=== PATIENT | male | born 1985 | race Caucasian/White ===

== ENCOUNTER 2020-09-03 16:13 | Emergency (ER) | payer OTHER ==
[~2020-09-03] VITALS: Ht 165.1 cm; Wt 113.9 kg
--- NOTE | 2020-09-03 16:36 | PHYS DOC ---
Past Medical History Past Medical History: No Pertinent History Past Surgical History: Tonsillectomy, Other Additional Past Surgical Histo: wisdom teeth extraction Smoking Status: Never Smoker Alcohol Use: None General Adult EDM: Chief Complaint: CHEST PAIN HPI: HPI: Patient is a 35 year old male who presents with mid chest pain as an aching that comes and goes but is more so with coughing or movement. Also to the back of right shoulder blade for about the last week. He states he is having generalized fatigue. He states he has not been checking his temperature at home but here in the ED does have fever of 100.1. Patient states he does have some nasal congestion but he also has allergies. States he has had a headache for about the last 6 weeks. He denies cough, sob, nausea, vomiting, loss of taste, loss of smell, diarrhea, numbness or tingling, focal weakness. Review of Systems: Review of Systems: Constitutional: + fever or chills. [] Eyes: Denies change in visual acuity. [] HENT: + nasal congestion or denies sore throat. [] Respiratory: Denies cough or shortness of breath. [] Cardiovascular: +chest pain or denies edema. [] GI: Denies abdominal pain, nausea, vomiting, bloody stools or diarrhea. [] : Denies dysuria. [] Musculoskeletal: Denies back pain or joint pain. + Body aches, + focal weakness [] Integument: Denies rash. [] Neurologic: + headache, denies focal weakness or sensory changes. [] Endocrine: Denies polyuria or polydipsia. [] Lymphatic: Denies swollen glands. [] Psychiatric: Denies depression or anxiety. [] Heart Score: HEART Score for Chest Pain: HEART Score for Chest Pain Response (Comments) Value History Slighlty/Non-Suspicious 0 ECG Normal 0 Age < 45 0 Risk Factors 1 or 2 Risk Factors 1 Troponin < Normal Limit 0 Total 1 Risk Factors: Risk Factors: DM, Current or recent (<one month) smoker, HTN, HLP, family history of CAD, obesity. Risk Scores: Score 0 - 3: 2.5% MACE over next 6 weeks - Discharge Home Score 4 - 6: 20.3% MACE over next 6 weeks - Admit for Clinical Observation Score 7 - 10: 72.7% MACE over next 6 weeks - Early Invasive Strategies Allergies: Allergies: Allergies Coded Allergies Type Severity Reaction Last Updated Verified Penicillins Allergy Unknown 09/03/20 Yes Physical Exam: PE: Constitutional: Well developed, well nourished, no acute distress, non-toxic appearance. [] HENT: Normocephalic, atraumatic, bilateral external ears normal, oropharynx moist, no oral exudates, nose normal. [] Eyes: PERRLA, EOMI, conjunctiva normal, no discharge. [] Neck: Normal range of motion, no tenderness, supple, no stridor. [] Cardiovascular:Heart rate regular rhythm, no murmur [] Lungs & Thorax: Bilateral breath sounds clear to auscultation [] Abdomen: Bowel sounds normal, soft, no tenderness, no masses, no pulsatile masses. [] Skin: Warm, dry, no erythema, no rash. [] Back: No tenderness, no CVA tenderness. [] Extremities: No tenderness, no cyanosis, no clubbing, ROM intact, no edema. [] Neurologic: Alert and oriented X 3, normal motor function, normal sensory function, no focal deficits noted. [] Psychologic: Affect normal, judgement normal, mood normal. Normal physical exam [] Current Patient Data: Vital Signs: Vital Signs Date Time Temp Pulse Resp B/P (MAP) Pulse Ox O2 Delivery O2 Flow Rate FiO2 09/03/20 16:27 100.1 108 20 159/85 (109) 100 Room Air 100.1 EKG: EK and read by Dr Leiva as Sinus Rhythm and no STEMI Radiology/Procedures: Radiology/Procedures: [] Impression: [facility] [address] [place], [place] [id number] IMAGING REPORT Signed PATIENT: MARGY FINCH ACCOUNT: [id number] : 1985 LOCATION: ER AGE: 35 SEX: M EXAM STATUS: PRE ER ORD. PHYSICIAN: GAVI SCHNEIDER APRN REASON: chest pain PROCEDURE: PORTABLE CHEST 1V Exam: Chest one view INDICATION: Chest pain TECHNIQUE: Frontal view of the chest Comparisons: None FINDINGS: The cardiomediastinal silhouette and pulmonary vessels are within normal limits. The lung and pleural spaces are clear. IMPRESSION: No acute cardiopulmonary process. Electronically signed by: Candi Dobbins MD (09/03/2020 5:04 PM) [facility] DICTATED and SIGNED BY: CANDI DOBBINS MD DATE: 09/03/20 [id number] 0 Course & Med Decision Making: Course & Med Decision Making Pertinent Labs and Imaging studies reviewed. (See chart for details) COVID-19 CRITERIA: The patient was evaluated during the global COVID-19 pandemic, and that diagnosis was suspected/considered upon their initial presentation. Their evaluation, treatment and testing was consistent with current guidelines for patients who present with complaints or symptoms that may be related to COVID-19. See HPI. Alert and oriented x4. Ambulatory with steady gait. Skin pink warm and dry. Lungs are clear to auscultation all lobes. Speaks in full clear sentences. Heart rate down to 102 from 112. [] Dragon Disclaimer: DragRoboCV Disclaimer: This electronic medical record was generated, in whole or in part, using a voice recognition dictation system. COVID-19 Patient Risks: Age 65 or older: No Sign of co-morbidity: Yes Exp to person + for COVID: Yes Exp to PUI: No Travel from affected area: No Lower respiratory symptoms: Yes Fever: Yes Other: Yes (body aches, nasal congestion) PPE Use: Full PPE with N95 mask or PAPR: Yes Departure Departure Impression: Primary Impression: Non-cardiac chest pain Additional Impressions: Body aches Fever Qualified Codes: R50.9 - Fever, unspecified Person under investigation for COVID-19 Fatigue Qualified Codes: R53.83 - Other fatigue Disposition: 01 DC HOME SELF CARE/HOMELESS Condition: STABLE Patient Instructions: Chest Pain (Nonspecific), Fatigue, Fever, Adult Additional Instructions: Follow-up with primary care provider. Take medication as prescribed and with food. Drink plenty of fluids. You have been tested for or diagnosed with COVID-19. It is an infection caused by a new type of coronavirus. COVID-19 will cause cold-like or mild flu symptoms in most. It can cause more severe symptoms like problems breathing in some. There is no treatment for COVID-19. The body will clear the infection over time. Self-care will help to ease discomfort. Steps to Take: Self-Care Rest as needed. Healthy habits may help you feel better. Steps include: Choose healthy foods including fruits and vegetables. Drink water throughout the day. Get plenty of sleep each night. If you smoke, try to quit. It may ease breathing. Avoid alcohol. Keep Others Healthy The virus can spread to others. Droplets are released every time you sneeze or cough. The droplets can get into the mouth, nose, or eyes of people near you and lead to infection. To lower the chances of spreading COVID-19 to others: Stay at home until your doctor has said it is safe to leave. If you tested positive this will mean staying isolated until both of the following are true: At least 7 days have passed since the start of illness. You are free of fever for at least 72 hours without the use of medicine. During this time: - Avoid public areas, events, or transportation. Do not return to work or school until your doctor has said it is safe to do so. - Call ahead if you need to go to a medical center. Let them know you may have COVID-19. It will help them guide you where to go. They may also ask you to wear a facemask when you come to the office. - If you call for emergency medical services, let them know you may have COVID- 19. While at home: - Try to avoid close contact with others. Stay about 6 feet away. - If possible, spend most of your time in a separate room from others. - Use a face mask if you will be in close contact with others such as sharing a room or vehicle. - Have someone wipe down common surfaces in the home. Use household assembly press operator every day on areas like doorknobs, counters, or sinks. - Cough or sneeze into a tissue. Throw the tissue away right after use. If a tissue is not available, cough or sneeze into your elbow. - Wash your hands often. Wash them after sneezing or coughing. Use soap and water and wash for at least 20 seconds. Alcohol based hand mud cleaner operator can be used if soap and water is not available. - Do not prepare food for others. Avoid sharing personal items like forks, spoons, or toothbrushes. - Avoid close contact with pets while you are sick. There is no evidence of the virus passing to pets. This is a safety step until more is known about this virus. Isolation can be frustrating. Social interaction can help. Keep in touch with friends and family through phone and tech options. You can still interact with others in your home, just keep a safe distance of about 6 feet. Follow-up: Your doctors office will check in with you to see if there are any changes in your health. You may be asked to keep track of symptoms to share with them. They will also let you know when you are clear to be in public again. Problems to Look Out For: Contact your doctor if your recovery is not going as you expect. Get emergency care if you have problems such as: - Trouble breathing - Nonstop chest pain or pressure - Changes in awareness, confusion, or problems waking - Lips or face have bluish color - Worsening of symptoms If you think you have an emergency, call for emergency medical services right away. As taken from [facility] Ibuprofen (IBUPROFEN) 600 Mg Tablet 600 MG PO PRN Q6HRS PRN for INFLAMMATION, #25 TAB Prov: GAVI SCHNEIDER APRN 09/03/20 Methylprednisolone (MEDROL) 4 Mg Tab.ds.pk 1 PKG PO UD, #1 PKG Prov: GAVI SCHNEIDER APRN 09/03/20 Azithromycin (AZITHROMYCIN TABLET) 250 Mg Tablet 1 PKG PO UD for 5 Days, #6 TAB 0 Refills 2 the first day followed by 1 for days 2-5 Prov: GAVI SCHNEIDER APRN 09/03/20 GAVI SCHNEIDER APRN Sep 03, 2020 16:36
[2020-09-03] MEDS ORDERED: ACETAMINOPHEN 325 MG TABLET. PO ONE (17:00)
[2020-09-03 17:07] LABS: BASO % 1 % (0-3); EOS # 0.1 x10^3/uL (0.0-0.7); EOS % 1 % (0-3); HEMATOCRIT 46.4 % (39.0-53.0); HEMOGLOBIN 15.8 g/dL (13.0-17.5); LYMPH # 2.6 x10^3/uL (1.0-4.8); LYMPH % 28 % (24-48); MEAN CORPUSCULAR HEMOGLOBIN 30 pg (25-35); MEAN CORPUSCULAR HGB CONC 34 g/dL (31-37); MEAN CORPUSCULAR VOLUME 88 fL (79-100); MONO # 0.7 x10^3/uL (0.0-1.1); MONO % 8 % (0-9); NEUT # 5.9 x10^3/uL (1.8-7.7); NEUT % 63 % (31-73); PLATELET COUNT 310 x10^3/uL (140-400); RED BLOOD COUNT 5.26 x10^6/uL (4.30-5.70); WHITE BLOOD COUNT 9.3 x10^3/uL (4.0-11.0)
--- NOTE | 2020-09-03 17:07 | RAD ---
Exam: Chest one view INDICATION: Chest pain TECHNIQUE: Frontal view of the chest Comparisons: None FINDINGS: The cardiomediastinal silhouette and pulmonary vessels are within normal limits. The lung and pleural spaces are clear. IMPRESSION: No acute cardiopulmonary process. Electronically signed by: Juanito Vyas MD (09/03/2020 5:04 PM) LINDA
[2020-09-03 17:15] LABS: PROTHROMBIN TIME PATIENT 12.6 SEC (11.7-14.0)
[2020-09-03 17:19] LABS: CALCIUM 9.1 mg/dL (8.5-10.1); CREATININE 1.1 mg/dL (0.7-1.3); GFR 76.6
[2020-09-03 17:25] LABS: ALBUMIN/GLOBULIN RATIO 1.3 (1.0-1.7); BILIRUBIN,URINE NEGATIVE (NEG); CLARITY,URINE CLEAR; COLOR,URINE YELLOW; NITRITE,URINE NEGATIVE (NEG); PROTEIN,URINE NEGATIVE (NEG-TRACE); TOTAL BILIRUBIN 0.3 mg/dL (0.2-1.0); TOTAL PROTEIN 7.2 g/dL (6.4-8.2)
[2020-09-03 17:29] LABS: BARBITURATES NEG (NEG); BENZODIAZEPINES NEG (NEG); CANNABINOIDS NEG (NEG); COCAINE NEG (NEG); METHADONE NEG (NEG); OPIATES NEG (NEG); PHENCYCLIDINE NEG (NEG)
[2020-09-03 17:30] LABS: BACTERIA,URINE 0 /HPF (0-FEW); RBC,URINE 0 /HPF (0-2); WBC,URINE OCC /HPF (0-4)
[2020-09-03 17:35] LABS: AMPHETAMINE/METHAMPHETAMINE NEG (NEG)
[2020-09-03] MEDS ORDERED: IV NORMAL SALINE 1000ML BAG 1,000 ML IV ONE (18:00)
[2020-09-03] MEDS ORDERED: METH4TAB2 PO (18:12)
[2020-09-03] MEDS ORDERED: IBUP-1007 PO (18:12)
[2020-09-03] MEDS ORDERED: AZIT250T6 PO (18:12)
[2020-09-03 19:54] VITALS: BP 115/56
--- NOTE | 2020-09-05 09:30 | NUR ---
IP: Attempted to contact pt concerning COVID results. No answer. Left a voicemail to return the call.
== END 2020-09-03 20:10 | disposition home or self-care (01) ==
LOC: ER 16:13
DX: R07.89 Other chest pain (principal); Z20.822 Contact with and (suspected) exposure to COVID-19; R50.9 Fever, unspecified; R05 Cough; R53.83 Other fatigue; Z90.89 Acquired absence of other organs; Z98.890 Other specified postprocedural states; Z88.0 Allergy status to penicillin
CPT/HCPCS: 36415; 71045; 80053; 80307; 81001; 83690; 83880; 84484; 85025; 85379; 85610; 93005; 96360; 96361; 99285; C9803; J7030; U0003

== ENCOUNTER → 2020-12-27 | Outpatient (CLI) | payer OTHER ==
[~2020-12-27] MED LIST: AZIT250T6 PO; IBUP-1007 PO; METH4TAB2 PO
--- NOTE | 2020-12-27 10:58 | KCIC ---
EXAM: Head CT without contrast. HISTORY: Headache. Left facial numbness. TECHNIQUE: Computed tomographic images of the head were obtained without contrast. *One or more of the following individualized dose reduction techniques were utilized for this examina tion: 1. Automated exposure control. 2. Adjustment of the mA and/or kV according to patient size. 3. Use of iterative reconstruction technique. COMPARISON: None. FINDINGS: There is no acute or subacute extra-axial or intraparenchymal hemorrhage. There is no mass effect or midline shift. There is no hydrocephalus. The ashby-white matter differentiation pattern is intact. The visualized portions of the orbits, paranasal sinuses and mastoid air cells are unremarkable. No s uspicious calvarial lesion is seen. IMPRESSION: No acute intracranial findings. Electronically signed by: Sigrid Holland MD (12/27/2020 10:55 AM) [id number]
== END ==
LOC: KCIC CT 08:34
PROVIDERS: ATTEND Family Medicine
DX: G44.89 Other headache syndrome (principal); R20.0 Anesthesia of skin
CPT/HCPCS: 70450

== ENCOUNTER 2021-09-26 16:36 | Inpatient (IN) | payer SELFPAY ==
[~2021-09-26] VITALS: Ht 165.1 cm; Wt 115.9 kg
[2021-09-26] VITALS (8 sets, daily range): BP systolic 117–159; BP diastolic 67–99
[2021-09-26] MEDS ORDERED: IV NORMAL SALINE 1000ML BAG 1,000 ML IV ONE (17:00)
[2021-09-26] MEDS ORDERED: ASPIRIN 325 MG TABLET PO ONE (17:00)
[2021-09-26] MEDS ORDERED: MORPHINE SULFATE 2 MG/ML INJ. IVP ONE (17:00)
[2021-09-26] MEDS ORDERED: HEPARIN for IV BOLUS 10,000 UNIT/10 ML VIAL. IV ONE (17:00)
[2021-09-26] MEDS ORDERED: IODIXANOL 320 MG/ML 100 ML VIAL. ONE ×2 (17:02→17:46)
[2021-09-26] MEDS ORDERED: HEPARIN for ARTERIAL LINE 1,500 ML ONE (17:02)
[2021-09-26] MEDS ORDERED: LIDOCAINE 1% Multi-Dose 20 ML VIAL. ONE (17:03)
[2021-09-26] MEDS ORDERED: MIDAZOLAM HCL/PF 2 MG/2 ML VIAL. ONE (17:03)
[2021-09-26] MEDS ORDERED: fentaNYL PF VIAL 100 MCG/2 ML VIAL ONE (17:03)
--- NOTE | 2021-09-26 17:05 | RAD ---
EXAM: Chest, single view. HISTORY: Chest pain. COMPARISON: 09/03/2020 FINDINGS: A frontal view of the chest is obtained. There is no infiltrate, pleural effusions or pneum othorax. The heart is normal in size. IMPRESSION: No acute pulmonary finding. Electronically signed by: Sigrid Holland MD (09/26/2021 5:02 PM) [id number]
--- NOTE | 2021-09-26 17:05 | PHYS DOC ---
Past Medical History Past Medical History: Hypertension Past Surgical History: Tonsillectomy, Other Additional Past Surgical Histo: wisdom teeth extraction Smoking Status: Never Smoker Alcohol Use: None Drug Use: None General Adult EDM: Chief Complaint: CHEST PAIN HPI: HPI: 36-year-old male presents with 10 to 15-minute history of substernal chest pain which is "clenching in nature ". Patient reports associated diaphoresis, shortness of breath, sore throat, and headache. Patient reports pain is 8 out of 10. Denies any leg swelling or calf tenderness. Denies trauma. Denies fever or chills. Patient does report chronic cough that is intermittent in nature. Patient does report history of COVID infection 2 weeks ago. Patient reports was previously vaccinated with single Giovanny & Giovanny vaccine. Patient reports cardiac risk factors of hypertension and significant family history of father with AMI at age 34. Review of Systems: Review of Systems: Constitutional: Denies fever or chills Eyes: Denies redness or eye pain HENT: Denies nasal congestion; reports sore throat Respiratory: Reports shortness of breath and chronic intermittent cough Cardiovascular: Reports chest pain; denies palpitations GI: Denies abdominal pain, nausea, or vomiting : Denies dysuria or hematuria Musculoskeletal: Denies back pain or joint pain Integument: Denies rash or skin lesions Neurologic: Reports headache; denies focal weakness or sensory changes Complete systems were reviewed and found to be within normal limits, except as documented in this note. Heart Score: C/O Chest Pain: Yes HEART Score for Chest Pain: HEART Score for Chest Pain Response (Comments) Value History Highly Suspicious [address] Depression 2 Age < 45 0 Risk Factors 1 or 2 Risk Factors 1 Total 5 Risk Factors: Risk Factors: DM, Current or recent (<one month) smoker, HTN, HLP, family history of CAD, obesity. Risk Scores: Score 0 - 3: 2.5% MACE over next 6 weeks - Discharge Home Score 4 - 6: 20.3% MACE over next 6 weeks - Admit for Clinical Observation Score 7 - 10: 72.7% MACE over next 6 weeks - Early Invasive Strategies Current Medications: Current Medications Medications (Trade) Dose Ordered Sig/Terri Start Time Stop Time Status Last Admin Dose Admin Aspirin (Shaun Aspirin) 325 mg 1X ONCE 09/26/21 17:00 09/26/21 17:01 UNV Heparin Sodium (Porcine) (Heparin Sodium) 4,000 unit 1X ONCE 09/26/21 17:00 09/26/21 17:01 UNV Sodium Chloride 1,000 ml @ 1,000 mls/hr 1X ONCE 09/26/21 17:00 09/26/21 17:59 UNV Allergies: Allergies: Allergies Coded Allergies Type Severity Reaction Last Updated Verified Penicillins Allergy Unknown 09/03/20 Yes Physical Exam: PE: Constitutional: Obese, well nourished, no acute distress, non-toxic appearance HENT: Normocephalic, atraumatic, pharynx without erythema or exudate Eyes: PERRL, EOMI, conjunctiva normal, no discharge Neck: Normal range of motion, no tenderness, supple Lungs & Thorax: No respiratory distress, equal chest rise and fall Abdomen: Soft, no tenderness Skin: Warm, dry, no erythema, no rash Back: No tenderness, no CVA tenderness Extremities: No calf tenderness, ROM intact, no edema Neurologic: Alert and oriented X 3, normal motor function, normal sensory function, no focal deficits noted Psychologic: Affect normal, judgment normal EKG: EKG: @1643 NSR at 73bpm, ST elevation II-III and aVF, reciprocal ST depression in I, aVL, and V2, QRS 90ms, QT/QTc 342/380ms, compared to prior EKG from 09/03/20 which was Sinus tachycadia at 112bpm, without ST elevation or depressions @1715 NSR at 84bpm, ST elevation II-III and aVF, reciprocal ST depression V2, QRS 90ms, QT/QTc 324/386ms Radiology/Procedures: Radiology/Procedures: PROCEDURE: PORTABLE CHEST 1V EXAM: Chest, single view. HISTORY: Chest pain. COMPARISON: 09/03/2020 FINDINGS: A frontal view of the chest is obtained. There is no infiltrate, pleural effusions or pneumothorax. The heart is normal in size. IMPRESSION: No acute pulmonary finding. Electronically signed by: Sigrid Holland MD (09/26/2021 5:02 PM) [id number] Course & Med Decision Making: Course & Med Decision Making Pertinent Labs and Imaging studies reviewed. (See chart for details) Patient presents with report of substernal chest pain which was sudden in nature with associated diaphoresis. Patient also with some sore throat, headache, shortness of breath. Patient does report COVID-19 infection 2 weeks ago. EKG obtained which was consistent for inferior DE. Code STEMI initiated. Aspirin and heparin provided. Labs obtained and posted to chart. Chest x-ray also obtained. Discussed case with Dr. Sargent (cardiology) who will take patient directly to the Printed Circuit Layout Taper. Patient requiring admission for further evaluation and treatment. Discussed with Dr. Tobar (hospitalist) who is in agreement with admission. Discussed findings and plan with patient, who acknowledges understanding and agreement. Dragon Disclaimer: Dragon Disclaimer: This electronic medical record was generated, in whole or in part, using a voice recognition dictation system. Departure Departure Impression: Primary Impression: STEMI (ST elevation myocardial infarction) Qualified Codes: I21.19 - ST elevation (STEMI) myocardial infarction inv olving other coronary artery of inferior wall Disposition: ADMITTED INPATIENT Admitting Physician: WASHINGTON Elizabeth) Condition: GUARDED Referrals: Viridiana BEEBE MD (PCP) Critical Care Time Critical care time was 30 minutes which includes time at bedside, spent in discussion of patient's care with specialists and/or family members, with interpretation of laboratory and/or radiological studies and is exclusive of procedures. CHAYITO SEVERINO DO Sep 26, 2021 17:05
[2021-09-26 17:13] LABS: BASO # 0.1 x10^3/uL (0.0-0.2); BASO % 1 % (0-3); EOS # 0.1 x10^3/uL (0.0-0.7); EOS % 1 % (0-3); HEMATOCRIT 46.1 % (39.0-53.0); LYMPH % 34 % (24-48); MEAN CORPUSCULAR HEMOGLOBIN 29 pg (25-35); MEAN CORPUSCULAR HGB CONC 33 g/dL (31-37); MEAN CORPUSCULAR VOLUME 89 fL (79-100); MONO # 1.4 x10^3/uL (0.0-1.1); MONO % 9 % (0-9); NEUT # 8.1 x10^3/uL (1.8-7.7); NEUT % 55 % (31-73); PLATELET COUNT 357 x10^3/uL (140-400); RED BLOOD COUNT 5.19 x10^6/uL (4.30-5.70); WHITE BLOOD COUNT 14.6 x10^3/uL (4.0-11.0)
[2021-09-26 17:18] LABS: CALCIUM 8.5 mg/dL (8.5-10.1); CREATININE 0.9 mg/dL (0.7-1.3); POTASSIUM 3.8 mmol/L (3.5-5.1)
[2021-09-26 17:21] LABS: ALBUMIN 3.9 g/dL (3.4-5.0); ALBUMIN/GLOBULIN RATIO 1.3 (1.0-1.7); MAGNESIUM 2.1 mg/dL (1.8-2.4); TOTAL BILIRUBIN 0.2 mg/dL (0.2-1.0)
[2021-09-26] MEDS ORDERED: ONDANSETRON PF 4 MG/2 ML VIAL. ONE (17:27)
[2021-09-26] MEDS ORDERED: BIVALIRUDIN 250 MG VIAL. IV ONE ×2 (17:43→18:15)
[2021-09-26] MEDS ORDERED: ATROPINE 1 MG/10 ML DISP.SYRINGE. ONE (17:55)
[2021-09-26] MEDS ORDERED: NITROGLYCERIN 200 MCG/2 ML SYRINGE FOR CATH/VASC LAB. ONE ×2 (18:04→18:11)
--- NOTE | 2021-09-26 18:04 | HP ---
DATE OF SERVICE: 09/26/2021 ADMIT DATE: 09/26/2021 CHIEF COMPLAINT: Chest pain. HISTORY OF PRESENT ILLNESS: The patient is a pleasant 36-year-old male who presents to the ER with 15 minutes of chest pain, rated at 10/10. He has associated shortness of breath, diaphoresis, sore throat and a headache rated at 10/10. He had COVID-19 two weeks ago. He is vaccinated with Giovanny and Giovanny. He has a strong family history. In fact, his dad had a heart attack at age 34. While in the ER, we noticed that he has got EKG changes consistent with ST elevated inferior acute myocardial infarction. I discussed the case with ER physician. We are going to admit the patient with consultation to Dr. Sargent. Dr. Sargent has just seen the patient, is going straight to the civil laboratory technician. PAST MEDICAL HISTORY: Hypertension, tonsillectomy, wisdom teeth extraction. ALLERGIES: PENICILLIN. FAMILY HISTORY: Coronary artery disease. His dad had a heart attack at 34. SOCIAL HISTORY: Does not drink, smoke or take drugs. MEDICATIONS: Reviewed. Please refer to the MRAD. REVIEW OF SYSTEMS: GENERAL: No history of weight change, weakness or fevers. SKIN: No bruising, hair changes or rashes. EYES: No blurred, double or loss of vision. NOSE AND THROAT: No history of nosebleeds, hoarseness or sore throat. HEART: He complains of chest pain. LUNGS: Denies cough, hemoptysis, wheezing or shortness of breath. GASTROINTESTINAL: Denies changes in appetite, nausea, vomiting, diarrhea or constipation. GENITOURINARY: No history of frequency, urgency, hesitancy or nocturia. NEUROLOGIC: Denies history of numbness, tingling, tremor or weakness. PSYCHIATRIC: No history of panic, anxiety or depression. ENDOCRINE: No history of heat or cold intolerance, polyuria or polydipsia. EXTREMITIES: Denies muscle weakness, joint pain, pain on walking or stiffness. PHYSICAL EXAMINATION: VITALS: Within normal limits and are stable. GENERAL: No apparent distress. Alert and oriented. HEENT: Normal cephalic atraumatic, external auditory canals are patent EYES: Extraocular muscles are intact, pupils are equally round and reactive to light and accommodation MUSCULOSKELETAL: Well developed, well nourished, good range of motion ENDOCRINE: No thyromegaly was palpated LYMPHATICS: No cervical chain or axillary nodes were noted HEMATOPOIETIC: No bruising NECK: Supple, no JVD, no thyromegaly was noted. LUNGS: Clear to auscultation in all lung ramey without rhonchi or wheezing. HEART: RRR, S1, S2 present. Peripheral pulses intact, no obvious murmurs were noted. ABDOMEN: Soft, nontender. Positive bowel sounds no organomegaly, normal bowel sounds. EXTREMITIES: Without any cyanosis, clubbing, or edema. Pedal pulses intact, Homans sign is negative. NEUROLOGIC: Normal speech, normal tone. A and O x 3, moves all extremities, no obvious focal deficits. PSYCHIATRIC: Normal affect, normal mood. Stable. SKIN: No ulcerations or rashes, good skin turgor, no jaundice. VASCULAR: Good capillary refill, neurovascular bundle appears to be intact. LABORATORY DATA: EKG shows ST elevation in the inferior leads with reciprocal ST depression in I, aVL and V2. ASSESSMENT AND PLAN: Acute myocardial infarction. The patient has been admitted. We will consult Cardiology. They have already seen her, taking straight to the civil laboratory technician. P.r.n. morphine. Await cardiac catheterization results. Prognosis guarded. DEVANTE DR: Rodriguez TID: [id number]
[2021-09-26] MEDS ORDERED: TICAGRELOR 90 MG TABLET. ONE (18:11)
[2021-09-26] MEDS ORDERED: LIDOCAINE 1% Multi-Dose 20 ML VIAL. INJ ONE (18:15)
[2021-09-26] MEDS ORDERED: fentaNYL PF VIAL 100 MCG/2 ML VIAL IV ONE (18:15)
[2021-09-26] MEDS ORDERED: TICAGRELOR 90 MG TABLET. PO ONE (18:15)
[2021-09-26] MEDS ORDERED: ONDANSETRON PF 4 MG/2 ML VIAL. IVP ONE (18:15)
[2021-09-26] MEDS ORDERED: MIDAZOLAM HCL/PF 2 MG/2 ML VIAL. IV ONE (18:15)
[2021-09-26] MEDS ORDERED: NITROGLYCERIN 200 MCG/2 ML SYRINGE FOR CATH/VASC LAB. IART ONE (18:15)
[2021-09-26] MEDS ORDERED: IODIXANOL 320 MG/ML 100 ML VIAL. IART ONE (18:15)
[2021-09-26] MEDS: TIROFIBAN 12.5MG -0.9% NS 250 ML IV PRN (18:33)
--- NOTE | 2021-09-26 19:15 | PDOC2 ---
CONSULT Date of Consult Date of Consult DATE: 09/26/21 TIME: 19:11 Reason for Consult Reason for Consult: Chest pain Referring Physician Referring Physician: Dr. Tobar Identification/Chief Complaint Chief Complaint Chest pain Source Source: Chart review, Patient History of Present Illness Reason for Visit: The patient is a 36-year-old male who presented to the emergency room with approximately 30 minutes of chest pain. Patient states he has had a headache for approximately 2 weeks but the chest pain is a new finding today. He did test positive for Covid approximately 2 weeks ago but denies any severe shortness of breath. His EKG in the emergency room is consistent with an inferior ST elevated myocardial infarction. He has been treated with heparin, aspirin and morphine for his pain. He was seen in the emergency room. He denies any personal history of coronary disease but does have a history of hypertension. He has a very strong family history of early coronary artery disease with his father having a myocardial infarction at age 34. Past Medical History Cardiovascular: HTN Past Surgical History Past Surgical History: Tonsillectomy, Other ([place] teeth removal) Family History Family History: Coronary Artery Disease Social History No ALCOHOL: none Current Problem List Problem List Problems Medical Problems: (1) STEMI (ST elevation myocardial infarction) Status: Acute Current Medications Current Medications Current Medications Sodium Chloride 1,000 ml @ 1,000 mls/hr 1X ONCE IV Last administered on 09/03 12/21at 16:58; Start 09/26/21 at 17:00; Stop 09/26/21 at 17:59; Status DC Heparin Sodium (Porcine) (Heparin Sodium) 4,000 unit 1X ONCE IV Last administered on 09/26/21at 16:59; Start 09/26/21 at 17:00; Stop 09/26/21 at 17:01; Status DC Aspirin (Shaun Aspirin) 325 mg 1X ONCE PO Last administered on 09/26/21at 16:57; Start 09/26/21 at 17:00; Stop 09/26/21 at 17:01; Status DC Morphine Sulfate (Morphine Sulfate) 2 mg 1X ONCE IVP Last administered on 09/26/21at 17:04; Start 09/26/21 at 17:00; Stop 09/26/21 at 17:31; Status DC Iodixanol (Visipaque 320) [facility] ONCE .ROUTE ; Start 09/26/21 at 17:02; Stop 09/26/21 at 17:02; Status DC Heparin Sodium/ Sodium Chloride 1,500 ml @ As Directed STK-MED ONCE .ROUTE ; Start 09/26/21 at 17:02; Stop 09/26/21 at 17:03; Status DC Fentanyl Citrate (Fentanyl 2ml Vial) 100 mcg STK-MED ONCE .ROUTE ; Start 09/26/21 at 17:03; Stop 09/26/21 at 17:03; Status DC Midazolam HCl (Versed) 2 mg STK-MED ONCE .ROUTE ; Start 09/26/21 at 17:03; Stop 09/26/21 at 17:03; Status DC Lidocaine HCl (Lidocaine 1% 20ml Vial) 20 ml STK-MED ONCE .ROUTE ; Start 09/26/21 at 17:03; Stop 09/26/21 at 17:03; Status DC Ondansetron HCl (Zofran) 4 mg STK-MED ONCE .ROUTE ; Start 09/26/21 at 17:27; Stop 09/26/21 at 17:27; Status DC Bivalirudin (Angiomax) 250 mg STK-MED ONCE IV ; Start 09/26/21 at 17:43; Stop 09/26/21 at 17:44; Status DC Heparin Sodium/ Sodium Chloride 500 ml @ As Directed STK-MED ONCE .ROUTE ; Start 09/26/21 at 17:43; Stop 09/26/21 at 17:44; Status DC Iodixanol (Visipaque 320) 100 ml STK-MED ONCE .ROUTE ; Start 09/26/21 at 17:46; Stop 09/26/21 at 17:46; Status DC Atropine Sulfate (ATROPINE 1mg SYRINGE) 1 mg STK-MED ONCE .ROUTE ; Start 09/26/21 at 17:55; Stop 09/26/21 at 17:56; Status DC Nitroglycerin (Nitroglycerin) 200 mcg STK-MED ONCE .ROUTE ; Start 09/26/21 at 18:04; Stop 09/26/21 at 18:04; Status DC Nitroglycerin (Nitroglycerin) 200 mcg 1X ONCE IART Last administered on 09/26/21at 18:30; Start 09/26/21 at 18:15; Stop 09/26/21 at 18:16; Status DC Heparin Sodium/ Sodium Chloride (HEPARIN for ARTERIAL LINE FLUSH) 2,000 unit 1X ONCE IART Last administered on 09/26/21at 18:29; Start 09/26/21 at 18:15; Stop 09/26/21 at 18:16; Status DC Heparin Sodium/ Sodium Chloride (HEPARIN for ARTERIAL LINE FLUSH) 2,000 unit 1X ONCE IART Last administered on 09/26/21at 18:29; Start 09/26/21 at 18:15; Stop 09/26/21 at 18:16; Status DC Midazolam HCl (Versed) 1 mg 1X ONCE IV Last administered on 09/26/21at 18:32; Start 09/26/21 at 18:15; Stop 09/26/21 at 18:16; Status DC Fentanyl Citrate (Fentanyl 2ml Vial) 50 mcg 1X ONCE IV Last administered on 09/26/21 18:32; Start 09/26/21 at 18:15; Stop 09/26/21 at 18:16; Status DC Iodixanol (Visipaque 320) 100 ml 1X ONCE IART Last administered on 09/26/21at 18:30; Start 09/26/21 at 18:15; Stop 09/26/21 at 18:16; Status DC Bivalirudin (Angiomax) 250 mg 1X ONCE IV Last administered on 09/26/21 18:32; Start 09/26/21 at 18:15; Stop 09/26/21 at 18:16; Status DC Ticagrelor (Brilinta) 180 mg 1X ONCE PO Last administered on 09/26/21at 18:31; Start 09/26/21 at 18:15; Stop 09/26/21 at 18:16; Status DC Lidocaine HCl (Lidocaine 1% 20ml Vial) 20 ml 1X ONCE INJ Last administered on 09/26/21at 17:31; Start 09/26/21 at 18:15; Stop 09/26/21 at 18:16; Status DC Ondansetron HCl (Zofran) 4 mg 1X ONCE IVP Last administered on 09/26/21 18:32; Start 09/26/21 at 18:15; Stop 09/26/21 at 18:16; Status DC Ticagrelor (Brilinta) 90 mg STK-MED ONCE .ROUTE ; Start 09/26/21 at 18:11; Stop 09/26/21 at 18:11; Status DC Nitroglycerin (Nitroglycerin) 200 mcg STK-MED ONCE .ROUTE ; Start 09/26/21 at 18:11; Stop 09/26/21 at 18:11; Status DC Tirofiban/Sodium Chloride 250 ml @ 22.086 mls/ hr CONT PRN IV PER PROTOCOL Last administered on 09/26/21at 18:33; Start 09/26/21 at 18:30 Active Scripts Active Ibuprofen 600 Mg Tablet 600 Mg PO PRN Q6HRS PRN Medrol (Methylprednisolone) 4 Mg Tab.ds.pk 1 Pkg PO UD Azithromycin Tablet (Azithromycin) 250 Mg Tablet 1 Pkg PO UD 5 Days 2 the first day followed by 1 for days 2-5 Allergies Allergies: Coded Allergies: Penicillins (Verified Allergy, Unknown, 09/26/21) ROS Cardiovascular: yes Chest Pain Neurological: Yes Headaches Physical Exam General: moderate distress HEENT: Atraumatic Lungs: Clear to auscultation Heart: Regular rate Abdomen: Normal bowel sounds Vitals VITALS Vital Signs Date Time Temp Pulse Resp B/P (MAP) Pulse Ox O2 Delivery O2 Flow Rate FiO2 09/26/21 19:02 98.7 88 16 136/79 (98) 98 Room Air 98.7 09/26/21 18:45 2.0 Labs Labs Laboratory Tests Test 09/26/21 16:50 09/26/21 16:55 White Blood Count 14.6 x10^3/uL (4.0-11.0) Red Blood Count 5.19 x10^6/uL (4.30-5.70) Hemoglobin 15.0 g/dL (13.0-17.5) Hematocrit 46.1 % (39.0-53.0) Mean Corpuscular Volume 89 fL (79-100) Mean Corpuscular Hemoglobin 29 pg (25-35) Mean Corpuscular Hemoglobin Concent 33 g/dL (31-37) Red Cell Distribution Width 14.0 % (11.5-14.5) Platelet Count 357 x10^3/uL (140-400) Neutrophils (%) (Auto) 55 % (31-73) Lymphocytes (%) (Auto) 34 % (24-48) Monocytes (%) (Auto) 9 % (0-9) Eosinophils (%) (Auto) 1 % (0-3) Basophils (%) (Auto) 1 % (0-3) Neutrophils # (Auto) 8.1 x10^3/uL (1.8-7.7) Lymphocytes # (Auto) 5.0 x10^3/uL (1.0-4.8) Monocytes # (Auto) 1.4 x10^3/uL (0.0-1.1) Eosinophils # (Auto) 0.1 x10^3/uL (0.0-0.7) Basophils # (Auto) 0.1 x10^3/uL (0.0-0.2) Sodium Level 137 mmol/L (136-145) Potassium Level 3.8 mmol/L (3.5-5.1) Chloride Level 99 mmol/L (98-107) Carbon Dioxide Level 24 mmol/L (21-32) Anion Gap 14 (6-14) Blood Urea Nitrogen 10 mg/dL (8-26) Creatinine 0.9 mg/dL (0.7-1.3) Estimated GFR (Cockcroft-Gault) 96.0 BUN/Creatinine Ratio 11 (6-20) Glucose Level 148 mg/dL (70-99) Calcium Level 8.5 mg/dL (8.5-10.1) Magnesium Level 2.1 mg/dL (1.8-2.4) Total Bilirubin 0.2 mg/dL (0.2-1.0) Aspartate Amino Transf (AST/SGOT) 33 U/L (15-37) Alanine Aminotransferase (ALT/SGPT) 89 U/L (16-63) Alkaline Phosphatase 103 U/L (46-116) Troponin I High Sensitivity 14 ng/L (4-75) QG-Jxv-T-Type Natriuretic Peptide 7 pg/mL (0-124) Total Protein 7.0 g/dL (6.4-8.2) Albumin 3.9 g/dL (3.4-5.0) Albumin/Globulin Ratio 1.3 (1.0-1.7) Lipase 121 U/L (73-393) SARS-CoV-2 Antigen (Rapid) Negative (NEGATIVE) Laboratory Tests Test 09/26/21 16:50 09/26/21 16:55 White Blood Count 14.6 x10^3/uL (4.0-11.0) Red Blood Count 5.19 x10^6/uL (4.30-5.70) Hemoglobin 15.0 g/dL (13.0-17.5) Hematocrit 46.1 % (39.0-53.0) Mean Corpuscular Volume 89 fL (79-100) Mean Corpuscular Hemoglobin 29 pg (25-35) Mean Corpuscular Hemoglobin Concent 33 g/dL (31-37) Red Cell Distribution Width 14.0 % (11.5-14.5) Platelet Count 357 x10^3/uL (140-400) Neutrophils (%) (Auto) 55 % (31-73) Lymphocytes (%) (Auto) 34 % (24-48) Monocytes (%) (Auto) 9 % (0-9) Eosinophils (%) (Auto) 1 % (0-3) Basophils (%) (Auto) 1 % (0-3) Neutrophils # (Auto) 8.1 x10^3/uL (1.8-7.7) Lymphocytes # (Auto) 5.0 x10^3/uL (1.0-4.8) Monocytes # (Auto) 1.4 x10^3/uL (0.0-1.1) Eosinophils # (Auto) 0.1 x10^3/uL (0.0-0.7) Basophils # (Auto) 0.1 x10^3/uL (0.0-0.2) Sodium Level 137 mmol/L (136-145) Potassium Level 3.8 mmol/L (3.5-5.1) Chloride Level 99 mmol/L (98-107) Carbon Dioxide Level 24 mmol/L (21-32) Anion Gap 14 (6-14) Blood Urea Nitrogen 10 mg/dL (8-26) Creatinine 0.9 mg/dL (0.7-1.3) Estimated GFR (Cockcroft-Gault) 96.0 BUN/Creatinine Ratio 11 (6-20) Glucose Level 148 mg/dL (70-99) Calcium Level 8.5 mg/dL (8.5-10.1) Magnesium Level 2.1 mg/dL (1.8-2.4) Total Bilirubin 0.2 mg/dL (0.2-1.0) Aspartate Amino Transf (AST/SGOT) 33 U/L (15-37) Alanine Aminotransferase (ALT/SGPT) 89 U/L (16-63) Alkaline Phosphatase 103 U/L (46-116) Troponin I High Sensitivity 14 ng/L (4-75) XA-Xvf-K-Type Natriuretic Peptide 7 pg/mL (0-124) Total Protein 7.0 g/dL (6.4-8.2) Albumin 3.9 g/dL (3.4-5.0) Albumin/Globulin Ratio 1.3 (1.0-1.7) Lipase 121 U/L (73-393) SARS-CoV-2 Antigen (Rapid) Negative (NEGATIVE) Assessment/Plan Assessment/Plan 1. Chest pain consistent with an ST elevated myocardial infarction probably involving the right coronary artery. The patient has been treated with aspirin and heparin. Has received morphine for his pain. He was seen in the emergency room. Risks and benefits of emergency catheterization and possible intervention were discussed with the patient and he has given permission to proceed. We will take the patient directly to the catheterization lab. 2. Hypertension. We will continue to monitor and treat as needed. 3. Family history of early coronary disease. Will check morning lab. As noted above the patient is a non-smoker. Will check on possible hyperlipidemia and/or diabetes. JOJO MAXWELL MD Sep 26, 2021 19:15
[2021-09-26] MEDS ORDERED: 0.9 % SODIUM CHLORIDE 10 ML DISP.SYRIN. IV PRN (19:30)
[2021-09-26] MEDS ORDERED: LIDOCAINE 2% 100 MG/5 ML SYRINGE. IV PRN (19:30)
[2021-09-26] MEDS ORDERED: AMIODARONE 150 MG in IV DEXTROSE 5% 100ML 100 ML IV PRN (19:30)
[2021-09-26] MEDS ORDERED: oxyCODONE/APAP 5/325 1 TAB TABLET PO PRN (19:30)
[2021-09-26] MEDS ORDERED: NITROGLYCERIN SUBLINGUAL 0.4 MG BOTTLE OF 25. SL PRN (19:30)
[2021-09-26] MEDS ORDERED: IV NORMAL SALINE 1000ML BAG 1,000 ML IV SCH (19:30)
[2021-09-26] MEDS ORDERED: ATROPINE 0.5 MG/5 ML DISP.SYRINGE. IV PRN (19:30)
--- NOTE | 2021-09-26 21:12 | EKG ---
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
[2021-09-26] MEDS: ATORVASTATIN CALCIUM 40 MG TABLET. PO SCH (21:46)
--- NOTE | 2021-09-26 22:32 | EKG ---
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 Electronically Signed On 09-28-2021 17:59:36 FORM LAYER by Jh Martínez
[2021-09-27] VITALS (23 sets, daily range): BP systolic 91–158; BP diastolic 59–94
--- NOTE | 2021-09-27 01:41 | EKG ---
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
[2021-09-27] MEDS ORDERED: LISI2.5T12 PO (03:49)
[2021-09-27] MEDS: TIROFIBAN 12.5MG -0.9% NS 250 ML IV PRN ×2 (05:10→17:53)
[2021-09-27 05:19] LABS: BASO % 0 % (0-3); EOS % 0 % (0-3); HEMATOCRIT 44.9 % (39.0-53.0); HEMOGLOBIN 14.9 g/dL (13.0-17.5); LYMPH # 2.4 x10^3/uL (1.0-4.8); LYMPH % 22 % (24-48); MEAN CORPUSCULAR HEMOGLOBIN 30 pg (25-35); MEAN CORPUSCULAR HGB CONC 33 g/dL (31-37); MEAN CORPUSCULAR VOLUME 89 fL (79-100); MONO # 0.9 x10^3/uL (0.0-1.1); MONO % 8 % (0-9); NEUT # 7.5 x10^3/uL (1.8-7.7); NEUT % 69 % (31-73); PLATELET COUNT 296 x10^3/uL (140-400); RED BLOOD COUNT 5.06 x10^6/uL (4.30-5.70); WHITE BLOOD COUNT 10.8 x10^3/uL (4.0-11.0)
[2021-09-27 05:41] LABS: CALCIUM 8.3 mg/dL (8.5-10.1); CHOLESTEROL/HDL RATIO 8.4; CREATININE 0.8 mg/dL (0.7-1.3); POTASSIUM 4.3 mmol/L (3.5-5.1)
--- NOTE | 2021-09-27 07:22 | HP ---
DATE OF SERVICE: 09/26/2021 ADMIT DATE: 09/26/2021 CHIEF COMPLAINT: Chest pain. HISTORY OF PRESENT ILLNESS: The patient is a pleasant 36-year-old male who presents to the ER today with 15 minutes of substernal chest pain, has been clenching his chest. He rates it at 10/10. He has associated shortness of breath, diaphoresis, sore throat and headache. He has a history of COVID-19 two weeks ago. He has been vaccinated with Giovanny and Giovanny. His family has a strong history of coronary artery disease, in fact, his dad had a history of heart attack at age 34. While in the ER, we noticed that he has got large ST elevations in the inferior leads. I discussed the case with the ER physician. We are going to admit the patient. Dr. Sargent has just seen the patient. 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 MARÍA/TEENA DR: Rodriguez TID: [id number]
--- NOTE | 2021-09-27 07:24 | PDOC ---
[employer] PROGRESS NOTE Date of Service DOS: DATE: 09/27/21 TIME: 07:21 Chief Complaint Chief Complaint Acute STEMI -status post RCA stenting. Hyperlipidemia - with hypertriglyceridemia. On high intensity atorvastatin Morbid obesity -counseled on weight loss lifestyle modification Hypertension -on lisinopril outpatient. FEN - Cardiac diet PPX - aggrastat FULL CODE Dispo - ICU for STEMI History of Present Illness History of Present Illness Mr Santa is a 36-year-old male who presented to the ER with 15 minutes of chest pain, rated at 10/10 on 09/26/2021. Had associated shortness of breath, diaphoresis, sore throat and a headache rated at 10/10. He had COVID-19 two weeks ago. He is vaccinated with Giovanny and Giovanny. He has a strong family history, father had [place] at age 34. EKG in ED with changes consistent with ST elevated inferior acute myocardial infarction. High-sensitivity troponin initially 0423 was 114,789 Went straight to the director of cardiac cath lab status post RCA stenting loaded with Brilinta.. 09/27: TSH 3.1, HDL 34 LDL 222, triglycerides 157. Having some right hip and lower back pain. Occasional back aching positional. Little bit of groin site pain. Still on Aggrastat currently plans for consideration for repeat intervention on 09/29/2021. No CP or SOB Vitals/I&O Vitals/I&O: Vital Signs Date Time Temp Pulse Resp B/P (MAP) Pulse Ox O2 Delivery O2 Flow Rate FiO2 09/27/21 07:00 64 19 124/80 (95) 100 Room Air 09/27/21 04:00 98.6 98.6 09/26/21 18:45 2.0 I & O 09/26/21 09/26/21 09/27/21 15:00 23:00 07:00 Output Total 900 ml Balance -900 ml Physical Exam General: moderate distress Heart: Regular rate Abdomen: Normal bowel sounds Labs Labs: Laboratory Tests Test 09/26/21 16:50 09/26/21 16:55 09/27/21 04:23 White Blood Count 14.6 x10^3/uL (4.0-11.0) 10.8 x10^3/uL (4.0-11.0) Red Blood Count 5.19 x10^6/uL (4.30-5.70) 5.06 x10^6/uL (4.30-5.70) Hemoglobin 15.0 g/dL (13.0-17.5) 14.9 g/dL (13.0-17.5) Hematocrit 46.1 % (39.0-53.0) 44.9 % (39.0-53.0) Mean Corpuscular Volume 89 fL (79-100) 89 fL (79-100) Mean Corpuscular Hemoglobin 29 pg (25-35) 30 pg (25-35) Mean Corpuscular Hemoglobin Concent 33 g/dL (31-37) 33 g/dL (31-37) Red Cell Distribution Width 14.0 % (11.5-14.5) 14.0 % (11.5-14.5) Platelet Count 357 x10^3/uL (140-400) 296 x10^3/uL (140-400) Neutrophils (%) (Auto) 55 % (31-73) 69 % (31-73) Lymphocytes (%) (Auto) 34 % (24-48) 22 % (24-48) Monocytes (%) (Auto) 9 % (0-9) 8 % (0-9) Eosinophils (%) (Auto) 1 % (0-3) 0 % (0-3) Basophils (%) (Auto) 1 % (0-3) 0 % (0-3) Neutrophils # (Auto) 8.1 x10^3/uL (1.8-7.7) 7.5 x10^3/uL (1.8-7.7) Lymphocytes # (Auto) 5.0 x10^3/uL (1.0-4.8) 2.4 x10^3/uL (1.0-4.8) Monocytes # (Auto) 1.4 x10^3/uL (0.0-1.1) 0.9 x10^3/uL (0.0-1.1) Eosinophils # (Auto) 0.1 x10^3/uL (0.0-0.7) 0.0 x10^3/uL (0.0-0.7) Basophils # (Auto) 0.1 x10^3/uL (0.0-0.2) 0.0 x10^3/uL (0.0-0.2) Sodium Level 137 mmol/L (136-145) 139 mmol/L (136-145) Potassium Level 3.8 mmol/L (3.5-5.1) 4.3 mmol/L (3.5-5.1) Chloride Level 99 mmol/L (98-107) 103 mmol/L (98-107) Carbon Dioxide Level 24 mmol/L (21-32) 25 mmol/L (21-32) Anion Gap 14 (6-14) 11 (6-14) Blood Urea Nitrogen 10 mg/dL (8-26) 10 mg/dL (8-26) Creatinine 0.9 mg/dL (0.7-1.3) 0.8 mg/dL (0.7-1.3) Estimated GFR (Cockcroft-Gault) 96.0 110.0 BUN/Creatinine Ratio 11 (6-20) Glucose Level 148 mg/dL (70-99) 100 mg/dL (70-99) Calcium Level 8.5 mg/dL (8.5-10.1) 8.3 mg/dL (8.5-10.1) Magnesium Level 2.1 mg/dL (1.8-2.4) 2.0 mg/dL (1.8-2.4) Total Bilirubin 0.2 mg/dL (0.2-1.0) Aspartate Amino Transf (AST/SGOT) 33 U/L (15-37) Alanine Aminotransferase (ALT/SGPT) 89 U/L (16-63) Alkaline Phosphatase 103 U/L (46-116) Troponin I High Sensitivity 14 ng/L (4-75) TI-Brq-H-Type Natriuretic Peptide 7 pg/mL (0-124) Total Protein 7.0 g/dL (6.4-8.2) Albumin 3.9 g/dL (3.4-5.0) Albumin/Globulin Ratio 1.3 (1.0-1.7) Lipase 121 U/L (73-393) SARS-CoV-2 Antigen (Rapid) Negative (NEGATIVE) Triglycerides Level 157 mg/dL (0-150) Cholesterol Level 287 mg/dL (0-200) LDL Cholesterol, Calculated 222 mg/dL (0-100) VLDL Cholesterol, Calculated 31 mg/dL (0-40) Non-HDL Cholesterol Calculated 253 mg/dL (0-129) HDL Cholesterol 34 mg/dL (40-60) Cholesterol/HDL Ratio 8.4 Thyroid Stimulating Hormone (TSH) 3.180 uIU/mL (0.358-3.74) Assessment and Plan Assessmemt and Plan Problems Medical Problems: (1) STEMI (ST elevation myocardial infarction) Status: Acute Comment Review of Relevant I have reviewed the following items kiko (where applicable) has been applied. Medications: Current Medications Medications (Trade) Dose Ordered Sig/Terri Route PRN Reason Start Time Stop Time Status Last Admin Dose Admin Sodium Chloride 1,000 ml @ 1,000 mls/hr 1X ONCE IV 09/26/21 17:00 09/26/21 17:59 DC 09/26/21 16:58 Heparin Sodium (Porcine) (Heparin Sodium) 4,000 unit 1X ONCE IV 09/26/21 17:00 09/26/21 17:01 DC 09/26/21 16:59 Aspirin (Shaun Aspirin) 325 mg 1X ONCE PO 09/26/21 17:00 09/26/21 17:01 DC 09/26/21 16:57 Morphine Sulfate (Morphine Sulfate) 2 mg 1X ONCE IVP 09/26/21 17:00 09/26/21 17:31 DC 09/26/21 17:04 Nitroglycerin (Nitroglycerin) 200 mcg 1X ONCE IART 09/26/21 18:15 09/26/21 18:16 DC 09/26/21 18:30 Heparin Sodium/ Sodium Chloride (HEPARIN for ARTERIAL LINE FLUSH) 2,000 unit 1X ONCE IART 09/26/21 18:15 09/26/21 18:16 DC 09/26/21 18:29 Heparin Sodium/ Sodium Chloride (HEPARIN for ARTERIAL LINE FLUSH) 2,000 unit 1X ONCE IART 09/26/21 18:15 09/26/21 18:16 DC 09/26/21 18:29 Midazolam HCl (Versed) 1 mg 1X ONCE IV 09/26/21 18:15 09/26/21 18:16 DC 09/26/21 18:32 Fentanyl Citrate (Fentanyl 2ml Vial) 50 mcg 1X ONCE IV 09/26/21 18:15 09/26/21 18:16 DC 09/26/21 18:32 Iodixanol (Visipaque 320) 100 ml 1X ONCE IART 09/26/21 18:15 09/26/21 18:16 DC 09/26/21 18:30 Bivalirudin (Angiomax) 250 mg 1X ONCE IV 09/26/21 18:15 09/26/21 18:16 DC 09/26/21 18:32 Ticagrelor (Brilinta) 180 mg 1X ONCE PO 09/26/21 18:15 09/26/21 18:16 DC 09/26/21 18:31 Lidocaine HCl (Lidocaine 1% 20ml Vial) 20 ml 1X ONCE INJ 09/26/21 18:15 09/26/21 18:16 DC 09/26/21 17:31 Ondansetron HCl (Zofran) 4 mg 1X ONCE IVP 09/26/21 18:15 09/26/21 18:16 DC 09/26/21 18:32 Tirofiban/Sodium Chloride 250 ml @ 22.086 mls/ hr CONT PRN IV PER PROTOCOL 09/26/21 18:30 09/27/21 05:10 Atorvastatin Calcium (Lipitor) 40 mg QHS PO 09/26/21 21:00 09/26/21 21:46 Oxycodone/ Acetaminophen (Percocet 5/325) 1 tab PRN Q4HRS PRN PO PAIN 09/26/21 19:30 09/26/21 21:46 Justifications for Admission Other Justification DANNI DEVI MD Sep 27, 2021 07:24
[2021-09-27] MEDS: IV NORMAL SALINE 1000ML BAG 1,000 ML IV SCH ×2 (08:50→22:37)
[2021-09-27] MEDS ORDERED: LISI10TA16 PO (08:53)
[2021-09-27] MEDS: ASPIRIN ENTERIC COATED 81 MG TABLET.DR. PO SCH (09:18)
[2021-09-27] MEDS: LISINOPRIL 10 MG TABLET PO SCH (09:18)
[2021-09-27] MEDS: LIDOCAINE (700MG/PATCH) PATCH. TD SCH (09:19)
[2021-09-27] MEDS ORDERED: CLOPIDOGREL BISULFATE 75 MG TABLET PO SCH (09:30)
--- NOTE | 2021-09-27 12:48 | PDOC ---
PROGRESS NOTES Date of Service DATE: 09/27/21 TIME: 12:45 Subjective Subjective Patient seen and examined Objective Objective Vital Signs Date Time Temp Pulse Resp B/P (MAP) Pulse Ox O2 Delivery O2 Flow Rate FiO2 09/27/21 12:00 98.8 87 19 131/77 (95) 100 Room Air 98.8 09/26/21 18:45 2.0 Intake and Output 09/27/21 07:00 Output Total 900 ml Balance -900 ml Output Urine Total 900 ml Physical Exam Abdomen: Normal bowel sounds Heart: Regular rate General: No acute distress Lungs: Clear to auscultation Assessment Assessment Problems Medical Problems: (1) STEMI (ST elevation myocardial infarction) Status: Acute 1. NSTEMI. Emergency catheterization last evening showed a relatively distal RCA occlusion which was stented successfully. The patient had additional lesions although not occlusive at the bifurcation of his distal right coronary artery and another branch with significant thrombus burden. Patient was place on Aggrastat. He has remained stable overnight and is pain-free today. We will continue on present treatments. Plan on repeat catheterization Wednesday morning and possible further stent placement to the right coronary artery. 2. Hypertension. Improved. Continue present treatment. 3. Hyperlipidemia. LDL of 222, HDL of 34. On high-dose statins at this time. 4. Family history of early coronary artery disease. Comment Review of Relevant I have reviewed the following items kiko (where applicable) has been applied. Labs Laboratory Tests Test 09/26/21 04:23 09/26/21 16:50 09/26/21 16:55 09/27/21 04:23 Troponin I High Sensitivity 790305 ng/L (4-75) 14 ng/L (4-75) White Blood Count 14.6 x10^3/uL (4.0-11.0) 10.8 x10^3/uL (4.0-11.0) Red Blood Count 5.19 x10^6/uL (4.30-5.70) 5.06 x10^6/uL (4.30-5.70) Hemoglobin 15.0 g/dL (13.0-17.5) 14.9 g/dL (13.0-17.5) Hematocrit 46.1 % (39.0-53.0) 44.9 % (39.0-53.0) Mean Corpuscular Volume 89 fL (79-100) 89 fL (79-100) Mean Corpuscular Hemoglobin 29 pg (25-35) 30 pg (25-35) Mean Corpuscular Hemoglobin Concent 33 g/dL (31-37) 33 g/dL (31-37) Red Cell Distribution Width 14.0 % (11.5-14.5) 14.0 % (11.5-14.5) Platelet Count 357 x10^3/uL (140-400) 296 x10^3/uL (140-400) Neutrophils (%) (Auto) 55 % (31-73) 69 % (31-73) Lymphocytes (%) (Auto) 34 % (24-48) 22 % (24-48) Monocytes (%) (Auto) 9 % (0-9) 8 % (0-9) Eosinophils (%) (Auto) 1 % (0-3) 0 % (0-3) Basophils (%) (Auto) 1 % (0-3) 0 % (0-3) Neutrophils # (Auto) 8.1 x10^3/uL (1.8-7.7) 7.5 x10^3/uL (1.8-7.7) Lymphocytes # (Auto) 5.0 x10^3/uL (1.0-4.8) 2.4 x10^3/uL (1.0-4.8) Monocytes # (Auto) 1.4 x10^3/uL (0.0-1.1) 0.9 x10^3/uL (0.0-1.1) Eosinophils # (Auto) 0.1 x10^3/uL (0.0-0.7) 0.0 x10^3/uL (0.0-0.7) Basophils # (Auto) 0.1 x10^3/uL (0.0-0.2) 0.0 x10^3/uL (0.0-0.2) Sodium Level 137 mmol/L (136-145) 139 mmol/L (136-145) Potassium Level 3.8 mmol/L (3.5-5.1) 4.3 mmol/L (3.5-5.1) Chloride Level 99 mmol/L (98-107) 103 mmol/L (98-107) Carbon Dioxide Level 24 mmol/L (21-32) 25 mmol/L (21-32) Anion Gap 14 (6-14) 11 (6-14) Blood Urea Nitrogen 10 mg/dL (8-26) 10 mg/dL (8-26) Creatinine 0.9 mg/dL (0.7-1.3) 0.8 mg/dL (0.7-1.3) Estimated GFR (Cockcroft-Gault) 96.0 110.0 BUN/Creatinine Ratio 11 (6-20) Glucose Level 148 mg/dL (70-99) 100 mg/dL (70-99) Calcium Level 8.5 mg/dL (8.5-10.1) 8.3 mg/dL (8.5-10.1) Magnesium Level 2.1 mg/dL (1.8-2.4) 2.0 mg/dL (1.8-2.4) Total Bilirubin 0.2 mg/dL (0.2-1.0) Aspartate Amino Transf (AST/SGOT) 33 U/L (15-37) Alanine Aminotransferase (ALT/SGPT) 89 U/L (16-63) Alkaline Phosphatase 103 U/L (46-116) UG-Rum-N-Type Natriuretic Peptide 7 pg/mL (0-124) Total Protein 7.0 g/dL (6.4-8.2) Albumin 3.9 g/dL (3.4-5.0) Albumin/Globulin Ratio 1.3 (1.0-1.7) Lipase 121 U/L (73-393) SARS-CoV-2 Antigen (Rapid) Negative (NEGATIVE) Triglycerides Level 157 mg/dL (0-150) Cholesterol Level 287 mg/dL (0-200) LDL Cholesterol, Calculated 222 mg/dL (0-100) VLDL Cholesterol, Calculated 31 mg/dL (0-40) Non-HDL Cholesterol Calculated 253 mg/dL (0-129) HDL Cholesterol 34 mg/dL (40-60) Cholesterol/HDL Ratio 8.4 Thyroid Stimulating Hormone (TSH) 3.180 uIU/mL (0.358-3.74) Laboratory Tests Test 09/26/21 16:50 09/26/21 16:55 09/27/21 04:23 White Blood Count 14.6 x10^3/uL (4.0-11.0) 10.8 x10^3/uL (4.0-11.0) Red Blood Count 5.19 x10^6/uL (4.30-5.70) 5.06 x10^6/uL (4.30-5.70) Hemoglobin 15.0 g/dL (13.0-17.5) 14.9 g/dL (13.0-17.5) Hematocrit 46.1 % (39.0-53.0) 44.9 % (39.0-53.0) Mean Corpuscular Volume 89 fL (79-100) 89 fL (79-100) Mean Corpuscular Hemoglobin 29 pg (25-35) 30 pg (25-35) Mean Corpuscular Hemoglobin Concent 33 g/dL (31-37) 33 g/dL (31-37) Red Cell Distribution Width 14.0 % (11.5-14.5) 14.0 % (11.5-14.5) Platelet Count 357 x10^3/uL (140-400) 296 x10^3/uL (140-400) Neutrophils (%) (Auto) 55 % (31-73) 69 % (31-73) Lymphocytes (%) (Auto) 34 % (24-48) 22 % (24-48) Monocytes (%) (Auto) 9 % (0-9) 8 % (0-9) Eosinophils (%) (Auto) 1 % (0-3) 0 % (0-3) Basophils (%) (Auto) 1 % (0-3) 0 % (0-3) Neutrophils # (Auto) 8.1 x10^3/uL (1.8-7.7) 7.5 x10^3/uL (1.8-7.7) Lymphocytes # (Auto) 5.0 x10^3/uL (1.0-4.8) 2.4 x10^3/uL (1.0-4.8) Monocytes # (Auto) 1.4 x10^3/uL (0.0-1.1) 0.9 x10^3/uL (0.0-1.1) Eosinophils # (Auto) 0.1 x10^3/uL (0.0-0.7) 0.0 x10^3/uL (0.0-0.7) Basophils # (Auto) 0.1 x10^3/uL (0.0-0.2) 0.0 x10^3/uL (0.0-0.2) Sodium Level 137 mmol/L (136-145) 139 mmol/L (136-145) Potassium Level 3.8 mmol/L (3.5-5.1) 4.3 mmol/L (3.5-5.1) Chloride Level 99 mmol/L (98-107) 103 mmol/L (98-107) Carbon Dioxide Level 24 mmol/L (21-32) 25 mmol/L (21-32) Anion Gap 14 (6-14) 11 (6-14) Blood Urea Nitrogen 10 mg/dL (8-26) 10 mg/dL (8-26) Creatinine 0.9 mg/dL (0.7-1.3) 0.8 mg/dL (0.7-1.3) Estimated GFR (Cockcroft-Gault) 96.0 110.0 BUN/Creatinine Ratio 11 (6-20) Glucose Level 148 mg/dL (70-99) 100 mg/dL (70-99) Calcium Level 8.5 mg/dL (8.5-10.1) 8.3 mg/dL (8.5-10.1) Magnesium Level 2.1 mg/dL (1.8-2.4) 2.0 mg/dL (1.8-2.4) Total Bilirubin 0.2 mg/dL (0.2-1.0) Aspartate Amino Transf (AST/SGOT) 33 U/L (15-37) Alanine Aminotransferase (ALT/SGPT) 89 U/L (16-63) Alkaline Phosphatase 103 U/L (46-116) Troponin I High Sensitivity 14 ng/L (4-75) VV-Nfa-Y-Type Natriuretic Peptide 7 pg/mL (0-124) Total Protein 7.0 g/dL (6.4-8.2) Albumin 3.9 g/dL (3.4-5.0) Albumin/Globulin Ratio 1.3 (1.0-1.7) Lipase 121 U/L (73-393) SARS-CoV-2 Antigen (Rapid) Negative (NEGATIVE) Triglycerides Level 157 mg/dL (0-150) Cholesterol Level 287 mg/dL (0-200) LDL Cholesterol, Calculated 222 mg/dL (0-100) VLDL Cholesterol, Calculated 31 mg/dL (0-40) Non-HDL Cholesterol Calculated 253 mg/dL (0-129) HDL Cholesterol 34 mg/dL (40-60) Cholesterol/HDL Ratio 8.4 Thyroid Stimulating Hormone (TSH) 3.180 uIU/mL (0.358-3.74) Medications Current Medications Sodium Chloride 1,000 ml @ 1,000 mls/hr 1X ONCE IV Last administered on 09/26/21at 16:58; Start 09/26/21 at 17:00; Stop 09/26/21 at 17:59; Status DC Heparin Sodium (Porcine) (Heparin Sodium) 4,000 unit 1X ONCE IV Last administered on 09/26/21at 16:59; Start 09/26/21 at 17:00; Stop 09/26/21 at 17:01; Status DC Aspirin (Shaun Aspirin) 325 mg 1X ONCE PO Last administered on 09/26/21at 16:57; Start 09/26/21 at 17:00; Stop 09/26/21 at 17:01; Status DC Morphine Sulfate (Morphine Sulfate) 2 mg 1X ONCE IVP Last administered on 09/26/21at 17:04; Start 09/26/21 at 17:00; Stop 09/26/21 at 17:31; Status DC Iodixanol (Visipaque 320) 100 ml STK-MED ONCE .ROUTE ; Start 09/26/21 at 17:02; Stop 09/26/21 at 17:02; Status DC Heparin Sodium/ Sodium Chloride 1,500 ml @ As Directed STK-MED ONCE .ROUTE ; Start 09/26/21 at 17:02; Stop 09/26/21 at 17:03; Status DC Fentanyl Citrate (Fentanyl 2ml Vial) 100 mcg STK-MED ONCE .ROUTE ; Start 09/26/21 at 17:03; Stop 09/26/21 at 17:03; Status DC Midazolam HCl (Versed) 2 mg STK-MED ONCE .ROUTE ; Start 09/26/21 at 17:03; Stop 09/26/21 at 17:03; Status DC Lidocaine HCl (Lidocaine 1% 20ml Vial) 20 ml STK-MED ONCE .ROUTE ; Start 09/26/21 at 17:03; Stop 09/26/21 at 17:03; Status DC Ondansetron HCl (Zofran) 4 mg STK-MED ONCE .ROUTE ; Start 09/26/21 at 17:27; Stop 09/26/21 at 17:27; Status DC Bivalirudin (Angiomax) 250 mg STK-MED ONCE IV ; Start 09/26/21 at 17:43; Stop 09/26/21 at 17:44; Status DC Heparin Sodium/ Sodium Chloride 500 ml @ As Directed STK-MED ONCE .ROUTE ; Start 09/26/21 at 17:43; Stop 09/26/21 at 17:44; Status DC Iodixanol (Visipaque 320) 100 ml STK-MED ONCE .ROUTE ; Start 09/26/21 at 17:46; Stop 09/26/21 at 17:46; Status DC Atropine Sulfate (ATROPINE 1mg SYRINGE) 1 mg STK-MED ONCE .ROUTE ; Start 09/26/21 at 17:55; Stop 09/26/21 at 17:56; Status DC Nitroglycerin (Nitroglycerin) 200 mcg STK-MED ONCE .ROUTE ; Start 09/26/21 at 18:04; Stop 09/26/21 at 18:04; Status DC Nitroglycerin (Nitroglycerin) 200 mcg 1X ONCE IART Last administered on 09/26/21at 18:30; Start 09/26/21 at 18:15; Stop 09/26/21 at 18:16; Status DC Heparin Sodium/ Sodium Chloride (HEPARIN for ARTERIAL LINE FLUSH) 2,000 unit 1X ONCE IART Last administered on 09/26/21at 18:29; Start 09/26/21 at 18:15; Stop 09/26/21 at 18:16; Status DC Heparin Sodium/ Sodium Chloride (HEPARIN for ARTERIAL LINE FLUSH) 2,000 unit 1X ONCE IART Last administered on 09/26/21at 18:29; Start 09/26/21 at 18:15; Stop 09/26/21 at 18:16; Status DC Midazolam HCl (Versed) 1 mg 1X ONCE IV Last administered on 09/26/21at 18:32; Start 09/26/21 at 18:15; Stop 09/26/21 at 18:16; Status DC Fentanyl Citrate (Fentanyl 2ml Vial) 50 mcg 1X ONCE IV Last administered on 09/26/21at 18:32; Start 09/26/21 at 18:15; Stop 09/26/21 at 18:16; Status DC Iodixanol (Visipaque 320) 100 ml 1X ONCE IART Last administered on 09/26/21at 18:30; Start 09/26/21 at 18:15; Stop 09/26/21 at 18:16; Status DC Bivalirudin (Angiomax) 250 mg 1X ONCE IV Last administered on 09/26/21at 18:32; Start 09/26/21 at 18:15; Stop 09/26/21 at 18:16; Status DC Ticagrelor (Brilinta) 180 mg 1X ONCE PO Last administered on 09/26/21at 18:31; Start 09/26/21 at 18:15; Stop 09/26/21 at 18:16; Status DC Lidocaine HCl (Lidocaine 1% 20ml Vial) 20 ml 1X ONCE INJ Last administered on 09/26/21at 17:31; Start 09/26/21 at 18:15; Stop 09/26/21 at 18:16; Status DC Ondansetron HCl (Zofran) 4 mg 1X ONCE IVP Last administered on 09/26/21at 18:32; Start 09/26/21 at 18:15; Stop 09/26/21 at 18:16; Status DC Ticagrelor (Brilinta) 90 mg STK-MED ONCE .ROUTE ; Start 09/26/21 at 18:11; Stop 09/26/21 at 18:11; Status DC Nitroglycerin (Nitroglycerin) 200 mcg STK-MED ONCE .ROUTE ; Start 09/26/21 at 18:11; Stop 09/26/21 at 18:11; Status DC Tirofiban/Sodium Chloride 250 ml @ 22.086 mls/ hr CONT PRN IV PER PROTOCOL Last administered on 09/27/21at 05:10; Start 09/26/21 at 18:30 Sodium Chloride 1,000 ml @ 75 mls/hr [id number] IV Last administered on 09/27/21at 08:50; Start 09/26/21 at 19:30 Sodium Chloride (Normal Saline Flush) 3 ml QSHIFT PRN IV AFTER MEDS AND BLOOD D RAWS; Start 09/26/21 at 19:30 Sodium Chloride 1,000 ml @ 75 mls/hr [id number] IV ; Start 2/25/22 at 19:30; Stop 09/27/21 at 01:29; Status UNV Atorvastatin Calcium (Lipitor) 40 mg QHS PO Last administered on 09/26/21at 21:46; Start 09/26/21 at 21:00 Nitroglycerin (Nitrostat) 0.4 mg PRN Q5MIN PRN SL CHEST PAIN; Start 09/26/21 at 19:30 Amiodarone HCl 150 mg/Dextrose 103 ml @ 600 mls/hr 1X PRN PRN IV FOR VENTRICULAR TACHYCARDIA; Start 09/26/21 at 19:30 Lidocaine HCl (Lidocaine HCl 2% Abboject) 100 mg 1X PRN PRN IV FOR VENTRICULAR TACHYCARDIA; Start 09/26/21 at 19:30 Atropine Sulfate (ATROPINE 0.5mg SYRINGE) 0.5 mg PRN 1X PRN IV BRADYCARDIA; Start 09/26/21 at 19:30 Oxycodone/ Acetaminophen (Percocet 5/325) 1 tab PRN Q4HRS PRN PO PAIN Last administered on 09/26/21at 21:46; Start 09/26/21 at 19:30 Clopidogrel Bisulfate (Plavix) 75 mg DAILYWBKFT PO Last administered on 09/27/21at 09:18; Start 09/27/21 at 09:30 Aspirin (Ecotrin) 81 mg DAILYWBKFT PO Last administered on 09/27/21at 09:18; Start 09/27/21 at 09:30 Lisinopril (Prinivil) 10 mg DAILY PO Last administered on 09/27/21at 09:18; Start 09/27/21 at 10:00 Lidocaine (Lidoderm) 1 patch DAILY TD Last administered on 09/27/21at 09:19; Start 09/27/21 at 10:00 Miscellaneous (Lidoderm Patch Removal) 1 ea QHS MC ; Start 09/27/21 at 21:00 Active Scripts Active Ibuprofen 600 Mg Tablet 600 Mg PO PRN Q6HRS PRN Medrol (Methylprednisolone) 4 Mg Tab.ds.pk 1 Pkg PO UD Azithromycin Tablet (Azithromycin) 250 Mg Tablet 1 Pkg PO UD 5 Days 2 the first day followed by 1 for days 2-5 Reported Lisinopril 10 Mg Tablet 1 Tab PO DAILY Vitals/I & O Vital Sign - Last 24 Hours 09/26/21 09/26/21 09/26/21 09/26/21 16:40 16:46 17:03 17:04 Temp 98.2 98.2 Pulse 101 91 84 Resp 21 24 18 B/P (MAP) 160/100 (120) 160/100 (120) 208/106 (140) Pulse Ox 100 100 100 O2 Delivery Room Air Room Air Room Air 09/26/21 09/26/21 09/26/21 09/26/21 17:06 17:13 18:32 18:45 Pulse 90 80 78 Resp 28 22 B/P (MAP) 160/79 (106) 159/79 (105) Pulse Ox 100 100 97 O2 Delivery Room Air Nasal Cannula O2 Flow Rate 2.0 09/26/21 09/26/21 09/26/21 09/26/21 19:02 19:15 19:30 20:00 Temp 98.7 98.7 Pulse 88 82 94 80 Resp 16 16 16 16 B/P (MAP) 136/79 (98) 123/75 (91) 117/81 (93) 139/71 (93) Pulse Ox 98 98 98 98 O2 Delivery Room Air Room Air Room Air Room Air 09/26/21 09/26/21 09/26/21 09/26/21 21:00 21:46 22:00 22:16 Pulse 90 72 Resp 16 16 16 B/P (MAP) 159/99 (119) 144/79 (100) Pulse Ox 98 98 98 99 O2 Delivery Room Air Nasal Cannula Room Air 09/26/21 09/27/21 09/27/21 09/27/21 23:00 01:00 02:00 03:00 Temp 98.2 98.2 Pulse 69 68 65 70 Resp 16 16 14 14 B/P (MAP) 141/67 (91) 132/71 (91) 135/77 (96) 142/76 (98) Pulse Ox 97 98 98 99 O2 Delivery Room Air Room Air Room Air Room Air 09/27/21 09/27/21 09/27/21 09/27/21 04:00 05:00 06:00 07:00 Temp 98.6 98.6 Pulse 69 69 71 64 Resp 14 14 14 19 B/P (MAP) 133/79 (97) 134/64 (87) 127/78 (94) 124/80 (95) Pulse Ox 99 99 99 100 O2 Delivery Room Air Room Air Room Air Room Air 09/27/21 09/27/21 09/27/21 09/27/21 08:00 09:00 09:18 10:00 Temp 98.9 98.9 Pulse 67 73 69 74 Resp 18 19 17 B/P (MAP) 133/77 (95) 137/80 (99) 129/71 134/76 (95) Pulse Ox 100 100 99 O2 Delivery Room Air Room Air Room Air 09/27/21 09/27/21 11:00 12:00 Temp 98.8 98.8 Pulse 79 87 Resp 17 19 B/P (MAP) 124/79 (94) 131/77 (95) Pulse Ox 100 100 O2 Delivery Room Air Room Air Intake and Output 09/26/21 09/26/21 09/27/21 15:00 23:00 07:00 Output Total 900 ml Balance -900 ml Justifications for Admission Other Justification JOJO MAXWELL MD Sep 27, 2021 12:48
--- NOTE | 2021-09-27 16:01 | CARD ---
MR#: [id number] Date of Study: 09/26/2021 Ordering Physician: JOJO MARTÍNEZ, Referring Physician: JOJO MARTÍNEZ, Tech: Nya Leigh, RT(R) APPROVED REPORT Procedures. Selective coronary angiogram. Drug-eluting stent placement to the RCA. The patient is a 36-year-old male who developed chest pain approximately 45 minutes prior to coming t o the emergency room. In the emergency room an EKG for evaluation was consistent with an inferior ST elevated myocardial infarction. The STEMI protocol was activated. He was seen in the emergency josé . He was initially treated with aspirin and IV heparin. Risks and benefits of a emergency catheter ization and possible intervention were discussed with the patient. He gave consent to proceed. After informed consent was obtained the patient was brought to the heart catheterization lab. The ar ea the right femoral vein and artery were prepared in usual manner with Betadine, sterile draping and local anesthetic. An 18-gauge needle was used to enter the right femoral artery, a wire placed and a 6 Beninese sheath placed the wire. An 18-gauge needle was used to enter the right femoral vein, a wi re placed and 6 Beninese sheath placed over the wire. A 6 Beninese JL4 diagnostic catheter was advanced to engage the left system. Sequential injections of various views were obtained. A 6 Beninese JR4 derrick de with sideholes was then used to engage the right coronary artery. It showed diffuse distal right coronary artery disease with an occlusion in the PDA branch. We proceeded to revascularize the vesse l. Angiomax as per protocol was given. Additionally a pacemaker wire was placed to the inferior julia a cava in case would be required for severe bradycardia when opening the right coronary occlusion in a young male. A PT choice wire was used to cross the lesion. It was dilated with a 2.5 x 15 Euphora balloon with 2 inflations at 8 rand for 15 seconds. A 3.0 x 18 Resolute Diogenes drug-eluting stent was then deployed with 1 inflation at 15 rand for 15 seconds. Residual lesion was 0%. Patient's EKG norm alized and the patient's chest pain resolved. However also in the distal right coronary artery they were lesions in the 70 to 80% range at the bifurcation and also in a second branch vessel the right c oronary artery. These were not addressed at this time due to heavy thrombus burden in the setting of an acute infarction. The guiding catheter was removed over a guidewire. The temporary pacemaker wa s removed. Injection of the sheath showed normal placement. The arterial sheath was removed and sea led with an Angio-Seal product. The venous sheath was removed and sealed with direct pressure. The patient was then moved to the intensive care unit. Findings. Hemodynamics. Aortic root pressure of 108/76. Coronaries. Left main. The left main had no lesions. Left anterior descending. The LAD was a moderate size vessel with normal distribution. A second sharifa gonal branch had a 15% lesion. Left circumflex. The left circumflex was a moderate size vessel with a mid 30% lesion. Right coronary artery. The right coronary was a large dominant vessel. It had a distal total occlus ion. There were also 70% or greater lesions with a heavy thrombus burden at the bifurcation and in t he PL. branch. <Conclusion> 1. Acute myocardial infarction secondary to a total occlusion in the right coronary artery. 2. Mild to moderate disease in the left circumflex vessel and LAD. 3. Successful drug-eluting stent placement decreasing a total RCA occlusion to 0%. 4. Residual lesions in the distal right coronary artery with heavy thrombus burden as noted above. The patient will be continued on antiplatelet medications and we anticipate a return to the [facility] in approximately 2 days to evaluate the status of these lesions. Moderate sedation time of 77 minutes. Fluoroscopy time of 9.3 minutes. Dose of 86 Gycm2. Contrast of 244 cc of VISI. All protective equipment and cunningham were used during the procedure. The patient's vital signs and rhythm were monitored independently during the procedure. Estimated blood loss of 25 cc. Signed by : Jojo Martínez MD Electronically Approved : 09/27/2021 16:01:20
[2021-09-27] MEDS: ATORVASTATIN CALCIUM 40 MG TABLET. PO SCH (20:26)
[2021-09-27] MEDS: PATCH REMOVAL. MC SCH (21:00)
[2021-09-28] VITALS (23 sets, daily range): BP systolic 86–133; BP diastolic 51–90
[2021-09-28 05:42] LABS: HEMOGLOBIN A1C 5.5 % (4.8-5.6)
[2021-09-28] MEDS: TIROFIBAN 12.5MG -0.9% NS 250 ML IV PRN ×2 (07:26→20:33)
[2021-09-28] MEDS: ASPIRIN ENTERIC COATED 81 MG TABLET.DR. PO SCH (08:33)
[2021-09-28] MEDS: LISINOPRIL 10 MG TABLET PO SCH (08:33)
[2021-09-28] MEDS: LIDOCAINE (700MG/PATCH) PATCH. TD SCH (09:12)
--- NOTE | 2021-09-28 09:17 | PDOC ---
[facility] PROGRESS NOTE Date of Service DOS: DATE: 09/28/21 TIME: 09:16 Chief Complaint Chief Complaint Acute STEMI -status post RCA stenting. Hyperlipidemia - with hypertriglyceridemia. On high intensity atorvastatin Morbid obesity -counseled on weight loss lifestyle modification Hypertension -on lisinopril outpatient. FEN - Cardiac diet PPX - aggrastat FULL CODE Dispo - ICU for STEMI History of Present Illness History of Present Illness Mr Santa is a 36-year-old male who presented to the ER with 15 minutes of chest pain, rated at 10/10 on 09/26/2021. Had associated shortness of breath, diaphoresis, sore throat and a headache rated at 10/10. He had COVID-19 two weeks ago. He is vaccinated with Giovanny and Giovanny. He has a strong family history, father had ND at age 34. EKG in ED with changes consistent with ST elevated inferior acute myocardial infarction. 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 09/27: TSH 3.1, HDL 34 LDL 222, triglycerides 157. Having some right hip and lower back pain. Occasional back aching positional. Little bit of groin site pain. Still on Aggrastat currently plans for consideration for repeat intervention on 09/29/2021. No CP or SOB 09/28: Chest pain or shortness of breath overnight. Right hip and back pain improved with Lidoderm patch and repositioning in the chair. Normal bowel movement today. Still on Aggrastat and aspirin with plans for repeat coronary angiography in the morning due to RCA heavy thrombus burden and distal occlusion. Vitals/I&O Vitals/I&O: Vital Signs Date Time Temp Pulse Resp B/P (MAP) Pulse Ox O2 Delivery O2 Flow Rate FiO2 09/28/21 08:33 82 108/58 09/28/21 08:00 Room Air 09/28/21 08:00 98.2 17 95 98.2 I & O 09/27/21 09/27/21 09/28/21 15:00 23:00 07:00 Intake Total 700 ml 2773 ml 250 ml Output Total 800 ml Balance -100 ml 2773 ml 250 ml Physical Exam General: Alert, Oriented X3, Cooperative, No acute distress Heart: Regular rate Lungs: Clear Abdomen: Normal bowel sounds Assessment and Plan Assessmemt and Plan Problems Medical Problems: (1) STEMI (ST elevation myocardial infarction) Status: Acute Comment Review of Relevant I have reviewed the following items kiko (where applicable) has been applied. Medications: Current Medications Medications (Trade) Dose Ordered Sig/Terri Route PRN Reason Start Time Stop Time Status Last Admin Dose Admin Clopidogrel Bisulfate (Plavix) 75 mg DAILYWBKFT PO 09/27/21 09:30 09/27/21 14:08 DC 09/27/21 09:18 Aspirin (Ecotrin) 81 mg DAILYWBKFT PO 09/27/21 09:30 09/28/21 08:33 Lisinopril (Prinivil) 10 mg DAILY PO 09/27/21 10:00 09/28/21 08:33 Lidocaine (Lidoderm) 1 patch DAILY TD 09/27/21 10:00 09/28/21 09:12 Misc[facility] ([facility]) [facility] 21:00 09/27/21 21:00 Justifications for Admission Other Justification DANNI DEVI MD Sep 28, 2021 09:17
[2021-09-28] MEDS ORDERED: PERFLUTREN PROTEIN-A MICROSPHR 0.22 MG/ML 3 ML VIAL. IV ONE (11:26)
[2021-09-28] MEDS ORDERED: FEXO180T81 PO (11:40)
[2021-09-28] MEDS: CETIRIZINE HCL 10 MG TABLET. PO SCH (12:17)
[2021-09-28] MEDS: IV NORMAL SALINE 1000ML BAG 1,000 ML IV SCH (12:18)
--- NOTE | 2021-09-28 13:59 | PDOC ---
PROGRESS NOTES Date of Service DATE: 09/28/21 TIME: 13:58 Subjective Subjective Patient seen and examined Objective Objective Vital Signs Date Time Temp Pulse Resp B/P (MAP) Pulse Ox O2 Delivery O2 Flow Rate FiO2 09/28/21 12:00 91 19 128/90 (103) 98 Room Air 09/28/21 08:00 98.2 98.2 09/26/21 18:45 2.0 Intake and Output 09/28/21 07:00 Intake Total 3723 ml Output Total 800 ml Balance 2923 ml Intake Oral 1400 ml IV Total 2323 ml Output Urine Total 800 ml # Voids 6 Physical Exam Abdomen: Normal bowel sounds Heart: Regular rate General: Alert HEENT: Atraumatic Lungs: Clear to auscultation Assessment Assessment Problems Medical Problems: (1) STEMI (ST elevation myocardial infarction) Status: Acute 1. STEMI. Emergency catheterization showed a relatively distal RCA occlusion which was stented successfully. The patient had additional lesions although not occlusive at the bifurcation of his distal right coronary artery and another branch with significant thrombus burden. Patient was place on Aggrastat. He has remained stable and is pain-free. We will continue on present treatments. Plan on repeat catheterization Wednesday and possible further stent placement to the right coronary artery. 2. Hypertension. Improved. Continue present treatment. 3. Hyperlipidemia. LDL of 222, HDL of 34. On high-dose statins at this time. 4. Family history of early coronary artery disease. Comment Review of Relevant I have reviewed the following items kiko (where applicable) has been applied. Labs Laboratory Tests Test 09/26/21 16:50 09/26/21 16:55 09/27/21 04:23 White Blood Count 14.6 x10^3/uL (4.0-11.0) 10.8 x10^3/uL (4.0-11.0) Red Blood Count 5.19 x10^6/uL (4.30-5.70) 5.06 x10^6/uL (4.30-5.70) Hemoglobin 15.0 g/dL (13.0-17.5) 14.9 g/dL (13.0-17.5) Hematocrit 46.1 % (39.0-53.0) 44.9 % (39.0-53.0) Mean Corpuscular Volume 89 fL (79-100) 89 fL (79-100) Mean Corpuscular Hemoglobin 29 pg (25-35) 30 pg (25-35) Mean Corpuscular Hemoglobin Concent 33 g/dL (31-37) 33 g/dL (31-37) Red Cell Distribution Width 14.0 % (11.5-14.5) 14.0 % (11.5-14.5) Platelet Count 357 x10^3/uL (140-400) 296 x10^3/uL (140-400) Neutrophils (%) (Auto) 55 % (31-73) 69 % (31-73) Lymphocytes (%) (Auto) 34 % (24-48) 22 % (24-48) Monocytes (%) (Auto) 9 % (0-9) 8 % (0-9) Eosinophils (%) (Auto) 1 % (0-3) 0 % (0-3) Basophils (%) (Auto) 1 % (0-3) 0 % (0-3) Neutrophils # (Auto) 8.1 x10^3/uL (1.8-7.7) 7.5 x10^3/uL (1.8-7.7) Lymphocytes # (Auto) 5.0 x10^3/uL (1.0-4.8) 2.4 x10^3/uL (1.0-4.8) Monocytes # (Auto) 1.4 x10^3/uL (0.0-1.1) 0.9 x10^3/uL (0.0-1.1) Eosinophils # (Auto) 0.1 x10^3/uL (0.0-0.7) 0.0 x10^3/uL (0.0-0.7) Basophils # (Auto) 0.1 x10^3/uL (0.0-0.2) 0.0 x10^3/uL (0.0-0.2) Sodium Level 137 mmol/L (136-145) 139 mmol/L (136-145) Potassium Level 3.8 mmol/L (3.5-5.1) 4.3 mmol/L (3.5-5.1) Chloride Level 99 mmol/L (98-107) 103 mmol/L (98-107) Carbon Dioxide Level 24 mmol/L (21-32) 25 mmol/L (21-32) Anion Gap 14 (6-14) 11 (6-14) Blood Urea Nitrogen 10 mg/dL (8-26) 10 mg/dL (8-26) Creatinine 0.9 mg/dL (0.7-1.3) 0.8 mg/dL (0.7-1.3) Estimated GFR (Cockcroft-Gault) 96.0 110.0 BUN/Creatinine Ratio 11 (6-20) Glucose Level 148 mg/dL (70-99) 100 mg/dL (70-99) Calcium Level 8.5 mg/dL (8.5-10.1) 8.3 mg/dL (8.5-10.1) Magnesium Level 2.1 mg/dL (1.8-2.4) 2.0 mg/dL (1.8-2.4) Total Bilirubin 0.2 mg/dL (0.2-1.0) Aspartate Amino Transf (AST/SGOT) 33 U/L (15-37) Alanine Aminotransferase (ALT/SGPT) 89 U/L (16-63) Alkaline Phosphatase 103 U/L (46-116) Troponin I High Sensitivity 14 ng/L (4-75) UR-Epr-C-Type Natriuretic Peptide 7 pg/mL (0-124) Total Protein 7.0 g/dL (6.4-8.2) Albumin 3.9 g/dL (3.4-5.0) Albumin/Globulin Ratio 1.3 (1.0-1.7) Lipase 121 U/L (73-393) Coronavirus (COVID-19)(PCR) Not detected (NOT DETECTD) SARS-CoV-2 Antigen (Rapid) Negative (NEGATIVE) Hemoglobin A1c 5.5 % (4.8-5.6) Triglycerides Level 157 mg/dL (0-150) Cholesterol Level 287 mg/dL (0-200) LDL Cholesterol, Calculated 222 mg/dL (0-100) VLDL Cholesterol, Calculated 31 mg/dL (0-40) Non-HDL Cholesterol Calculated 253 mg/dL (0-129) HDL Cholesterol 34 mg/dL (40-60) Cholesterol/HDL Ratio 8.4 Thyroid Stimulating Hormone (TSH) 3.180 uIU/mL (0.358-3.74) Medications Current Medications Sodium Chloride 1,000 ml @ 1,000 mls/hr 1X ONCE IV Last administered on 09/26/21at 16:58; Start 09/26/21 at 17:00; Stop 09/26/21 at 17:59; Status DC Heparin Sodium (Porcine) (Heparin Sodium) 4,000 unit 1X ONCE IV Last administered on 09/26/21at 16:59; Start 09/26/21 at 17:00; Stop 09/26/21 at 17:01; Status DC Aspirin (Shaun Aspirin) 325 mg 1X ONCE PO Last administered on 09/26/21at 16:57; Start 09/26/21 at 17:00; Stop 09/26/21 at 17:01; Status DC Morphine Sulfate (Morphine Sulfate) 2 mg 1X ONCE IVP Last administered on 09/26/21at 17:04; Start 09/26/21 at 17:00; Stop 09/26/21 at 17:31; Status DC Iodixanol (Visipaque 320) 100 ml STK-MED ONCE .ROUTE ; Start 09/26/21 at 17:02; Stop 09/26/21 at 17:02; Status DC Heparin Sodium/ Sodium Chloride 1,500 ml @ As Directed STK-MED ONCE .ROUTE ; Start 09/26/21 at 17:02; Stop 09/26/21 at 17:03; Status DC Fentanyl Citrate (Fentanyl 2ml Vial) 100 mcg STK-MED ONCE .ROUTE ; Start 09/26/21 at 17:03; Stop 09/26/21 at 17:03; Status DC Midazolam HCl (Versed) 2 mg STK-MED ONCE .ROUTE ; Start 09/26/21 at 17:03; Stop 09/26/21 at 17:03; Status DC Lidocaine HCl (Lidocaine 1% 20ml Vial) 20 ml STK-MED ONCE .ROUTE ; Start 09/26/21 at 17:03; Stop 09/26/21 at 17:03; Status DC Ondansetron HCl (Zofran) 4 mg STK-MED ONCE .ROUTE ; Start 09/26/21 at 17:27; Stop 09/26/21 at 17:27; Status DC Bivalirudin (Angiomax) 250 mg STK-MED ONCE IV ; Start 09/26/21 at 17:43; Stop 09/26/21 at 17:44; Status DC Heparin Sodium/ Sodium Chloride 500 ml @ As Directed STK-MED ONCE .ROUTE ; Start 09/26/21 at 17:43; Stop 09/26/21 at 17:44; Status DC Iodixanol (Visipaque 320) 100 ml STK-MED ONCE .ROUTE ; Start 09/26/21 at 17:46; Stop 09/26/21 at 17:46; Status DC Atropine Sulfate (ATROPINE 1mg SYRINGE) 1 mg STK-MED ONCE .ROUTE ; Start 09/26/21 at 17:55; Stop 09/26/21 at 17:56; Status DC Nitroglycerin (Nitroglycerin) 200 mcg STK-MED ONCE .ROUTE ; Start 09/26/21 at 18:04; Stop 09/26/21 at 18:04; Status DC Nitroglycerin (Nitroglycerin) 200 mcg 1X ONCE IART Last administered on 09/26/21at 18:30; Start 09/26/21 at 18:15; Stop 09/26/21 at 18:16; Status DC Heparin Sodium/ Sodium Chloride (HEPARIN for ARTERIAL LINE FLUSH) 2,000 unit 1X ONCE IART Last administered on 09/26/21at 18:29; Start 09/26/21 at 18:15; Stop 09/26/21 at 18:16; Status DC Heparin Sodium/ Sodium Chloride (HEPARIN for ARTERIAL LINE FLUSH) 2,000 unit 1X ONCE IART Last administered on 09/26/21at 18:29; Start 09/26/21 at 18:15; Stop 09/26/21 at 18:16; Status DC Midazolam HCl (Versed) 1 mg 1X ONCE IV Last administered on 09/26/21 18:32; Start 09/26/21 at 18:15; Stop 09/26/21 at 18:16; Status DC Fentanyl Citrate (Fentanyl 2ml Vial) 50 mcg 1X ONCE IV Last administered on 09/26/21 18:32; Start 09/26/21 at 18:15; Stop 09/26/21 at 18:16; Status DC Iodixanol (Visipaque 320) 100 ml 1X ONCE IART Last administered on 09/26/21 18:30; Start 09/26/21 at 18:15; Stop 09/26/21 at 18:16; Status DC Bivalirudin (Angiomax) 250 mg 1X ONCE IV Last administered on 09/26/21at 18:32; Start 09/26/21 at 18:15; Stop 09/26/21 at 18:16; Status DC Ticagrelor (Brilinta) 180 mg 1X ONCE PO Last administered on 09/26/21at 18:31; Start 09/26/21 at 18:15; Stop 09/26/21 at 18:16; Status DC Lidocaine HCl (Lidocaine 1% 20ml Vial) 20 ml 1X ONCE INJ Last administered on 09/26/21at 17:31; Start 09/26/21 at 18:15; Stop 09/26/21 at 18:16; Status DC Ondansetron HCl (Zofran) 4 mg 1X ONCE IVP Last administered on 09/26/21at 18:32; Start 09/26/21 at 18:15; Stop 09/26/21 at 18:16; Status DC Ticagrelor (Brilinta) 90 mg STK-MED ONCE .ROUTE ; Start 09/26/21 at 18:11; Stop 09/26/21 at 18:11; Status DC Nitroglycerin (Nitroglycerin) 200 mcg STK-MED ONCE .ROUTE ; Start 09/26/21 at 18:11; Stop 09/26/21 at 18:11; Status DC Tirofiban/Sodium Chloride 250 ml @ 22.086 mls/ hr CONT PRN IV PER PROTOCOL Last administered on 09/28/21at 07:26; Start 09/26/21 at 18:30 Sodium Chloride 1,000 ml @ 75 mls/hr [id number] IV Last administered on 09/28/21at 12:18; Start 09/26/21 at 19:30 Sodium Chloride (Normal Saline Flush) 3 ml QSHIFT PRN IV AFTER MEDS AND BLOOD DRAWS; Start 09/26/21 at 19:30 Sodium Chloride 1,000 ml @ 75 mls/hr [id number] IV ; Start 09/26/21 at 19:30; Stop 09/27/21 at 01:29; Status UNV Atorvastatin Calcium (Lipitor) 40 mg QHS PO Last administered on 09/27/21at 20:26; Start 09/26/21 at 21:00 Nitroglycerin (Nitrostat) 0.4 mg PRN Q5MIN PRN SL CHEST PAIN; Start 09/26/21 at 19:30 Amiodarone HCl 150 mg/Dextrose 103 ml @ 600 mls/hr 1X PRN PRN IV FOR VENTRICULAR TACHYCARDIA; Start 09/26/21 at 19:30 Lidocaine HCl (Lidocaine HCl 2% Abboject) 100 mg 1X PRN PRN IV FOR VENTRICULAR TACHYCARDIA; Start 09/26/21 at 19:30 Atropine Sulfate (ATROPINE 0.5mg SYRINGE) 0.5 mg PRN 1X PRN IV BRADYCARDIA; Start 09/26/21 at 19:30 Oxycodone/ Acetaminophen (Percocet 5/325) 1 tab PRN Q4HRS PRN PO PAIN Last administered on 09/26/21at 21:46; Start 09/26/21 at 19:30 Clopidogrel Bisulfate (Plavix) 75 mg DAILYWBKFT PO Last administered on 09/27/21at 09:18; Start 09/27/21 at 09:30; Stop 09/27/21 at 14:08; Status DC Aspirin (Ecotrin) 81 mg DAILYWBKFT PO Last administered on 09/28/21at 08:33; Start 09/27/21 at 09:30 Lisinopril (Prinivil) 10 mg DAILY PO Last administered on 09/28/21at 08:33; Start 09/27/21 at 10:00 Lidocaine (Lidoderm) 1 patch DAILY TD Last administered on 09/28/21at 09:12; Start 09/27/21 at 10:00 Miscellaneous (Lidoderm Patch Removal) 1 ea QHS MC Last administered on 09/27/21at 21:00; Start 09/27/21 at 21:00 Clopidogrel Bisulfate (Plavix) 75 mg DAILYWBKFT PO ; Start 09/30/21 at 08:00 Perflutren Protein Type A Microsphe (Optison) 0.66 mg STK-MED ONCE IV ; Start 09/28/21 at 11:26; Stop 09/28/21 at 11:26; Status DC Cetirizine HCl (ZyrTEC) 10 mg DAILY PO Last administered on 09/28/21at 12:17; Start 09/28/21 at 12:00 Active Scripts Active Ibuprofen 600 Mg Tablet 600 Mg PO PRN Q6HRS PRN Medrol (Methylprednisolone) 4 Mg Tab.ds.pk 1 Pkg PO UD Azithromycin Tablet (Azithromycin) 250 Mg Tablet 1 Pkg PO UD 5 Days 2 the first day followed by 1 for days 2-5 Reported Ariane Allergy (Fexofenadine Hcl) 180 Mg Tablet 1 Tab PO DAILY 30 Days Lisinopril 10 Mg Tablet 1 Tab PO DAILY Vitals/I & O Vital Sign - Last 24 Hours 09/27/21 09/27/21 09/27/21 09/27/21 14:00 15:00 16:00 17:00 Temp 98.5 98.5 Pulse 97 80 77 84 Resp 20 18 16 18 B/P (MAP) 133/67 (89) 149/75 (99) 127/77 (94) 158/94 (115) Pulse Ox 97 96 100 96 O2 Delivery Room Air Room Air Room Air Room Air 09/27/21 09/27/21 09/27/21 09/27/21 18:00 19:00 20:00 20:00 Temp 98.0 98.0 Pulse 98 103 92 Resp 18 18 16 B/P (MAP) 128/91 (103) 117/86 (96) 122/88 (99) Pulse Ox 98 98 100 O2 Delivery Room Air Room Air Room Air Room Air 09/27/21 09/27/21 09/27/21 09/28/21 21:00 22:00 23:00 00:00 Pulse 94 92 96 86 Resp 16 16 14 14 B/P (MAP) 128/84 (99) 116/75 (89) 91/59 (70) 92/57 (69) Pulse Ox 98 98 99 95 O2 Delivery Room Air Room Air Room Air Room Air 09/28/21 09/28/21 09/28/21 09/28/21 01:00 02:00 03:00 04:00 Pulse 82 86 86 71 Resp 16 16 16 16 B/P (MAP) 97/59 (72) 95/61 (72) 99/65 (76) 98/63 (75) Pulse Ox 95 99 97 95 O2 Delivery Room Air Room Air Room Air Room Air 09/28/21 09/28/21 09/28/21 09/28/21 05:00 06:00 07:00 08:00 Temp 98.2 98.2 Pulse 78 82 83 82 Resp 16 16 15 17 B/P (MAP) 86/51 (63) 118/68 (85) 97/66 (76) 108/58 (75) Pulse Ox 96 96 98 95 O2 Delivery Room Air Room Air Room Air Room Air 09/28/21 09/28/21 09/28/21 09/28/21 08:00 08:33 09:00 10:00 Pulse 82 83 90 Resp 15 19 B/P (MAP) 108/58 97/66 (76) 133/86 (102) Pulse Ox 98 98 O2 Delivery Room Air Room Air Room Air 09/28/21 09/28/21 11:00 12:00 Pulse 83 91 Resp 18 19 B/P (MAP) 119/77 (91) 128/90 (103) Pulse Ox 97 98 O2 Delivery Room Air Room Air Intake and Output 09/27/21 09/27/21 09/28/21 15:00 23:00 07:00 Intake Total 700 ml 2773 ml 250 ml Output Total 800 ml Balance -100 ml 2773 ml 250 ml Justifications for Admission Other Justification JOJO MAXWELL MD Sep 28, 2021 13:59
[2021-09-28] MEDS: PATCH REMOVAL. MC SCH (20:32)
[2021-09-28] MEDS: ATORVASTATIN CALCIUM 40 MG TABLET. PO SCH (20:32)
[2021-09-29] VITALS (26 sets, daily range): BP systolic 90–140; BP diastolic 54–88
[2021-09-29] MEDS: IV NORMAL SALINE 1000ML BAG 1,000 ML IV SCH ×3 (00:50→22:33)
[2021-09-29] MEDS: CETIRIZINE HCL 10 MG TABLET. PO SCH (08:06)
[2021-09-29] MEDS: ASPIRIN ENTERIC COATED 81 MG TABLET.DR. PO SCH (08:06)
[2021-09-29] MEDS: LISINOPRIL 10 MG TABLET PO SCH (08:06)
[2021-09-29] MEDS: LIDOCAINE (700MG/PATCH) PATCH. TD SCH (08:07)
[2021-09-29] MEDS: TIROFIBAN 12.5MG -0.9% NS 250 ML IV PRN (09:05)
--- NOTE | 2021-09-29 09:07 | CARD ---
MR#: [id number] Date of Study: 09/28/2021 Ordering Physician: JOJO MAXWELL, Referring Physician: JOJO MAXWELL, Tech: Erick Butterfield [facility] APPROVED REPORT EXAM: Two-dimensional and M-mode echocardiogram with Doppler and color Doppler. Other Information Quality : FairHR: 80bpm Rhythm : NSRTechnically limited study due to body habitus. INDICATION Post STEMI RISK FACTORS Hypertension Obesity Hyperlipidemia S/P RCA stent 2D DIMENSIONS Left Atrium(2D)3.7 (1.6-4.0cm)IVSd1.2 (0.7-1.1cm) Aortic Root(2D)3.6 (2.0-3.7cm)LVDd4.9 (3.9-5.9cm) LVOT Diameter2.6 (1.8-2.4cm)PWd1.2 (0.7-1.1cm) LVDs3.9 (2.5-4.0cm)FS (%) 21.5 % SV49.3 mlLVEF(%)43.5 (>50%) Aortic Valve AoV Peak Nicko.82.7cm/sAoV VTI14.2cm AO Peak GR.2.7mmHgLVOT Peak Nicko.62.4cm/s AO Mean GR.2mmHgAVA (VMAX)4.15cm2 Mitral Valve MV E Ejavzwvc41.1cm/sMV E Peak Gr.2mmHg MV DECEL [id number] A Jayiihtc74.8cm/s MV E Mean Gr.1mmHgE/A Ratio1.1 Pulmonary Valve PV Peak Ikcqeiko37.9cm/s Tricuspid Valve TR P. Yrqhzxkw285rp/sTR Peak Gr.17mmHg Pulmonary Vein S1 Ceezxngw95.3cm/sD2 Kfrjcqla15.1cm/s LEFT VENTRICLE The left ventricle is normal size. There is mild concentric left ventricular hypertrophy. The systoli c function is mildly impaired. The Ejection Fraction is 45% There is posterior wall hypokinesis The l eft ventricular diastolic function and filling is normal for age. No left ventricle thrombus noted on this study. There is no ventricular septal defect visualized. There is no left ventricular aneurysm. There is no mass noted in the left ventricle. RIGHT VENTRICLE The right ventricle is normal size. There is normal right ventricular wall thickness. The right ventr icular systolic function is normal. ATRIA The left atrium size is normal. The right atrium size is normal. The interatrial septum is intact wit h no evidence for an atrial septal defect or patent foramen ovale as noted on 2-D or Doppler imaging. AORTIC VALVE The aortic valve is normal in structure and function. Doppler and Color Flow revealed no significant aortic regurgitation. There is no significant aortic valvular stenosis. There is no aortic valvular v egetation. MITRAL VALVE The mitral valve is normal in structure and function. There is no evidence of mitral valve prolapse. There is no mitral valve stenosis. Doppler and Color-flow revealed mild mitral regurgitation. TRICUSPID VALVE The tricuspid valve is normal in structure and function. Doppler and Color Flow revealed trace tricus pid regurgitation. There is no tricuspid valve prolapse or vegetation. There is no tricuspid valve st enosis. PULMONIC VALVE The pulmonary valve is normal in structure and function. Doppler and Color Flow revealed no pulmonic valvular regurgitation. There is no pulmonic valvular stenosis. GREAT VESSELS The aortic root is normal in size. The ascending aorta is normal in size. The pulmonary artery is nor mal. The IVC is normal in size and collapses >50% with inspiration. PERICARDIAL EFFUSION There is no pleural effusion. There is no evidence of significant pericardial effusion. Critical Notification Critical Value: No <Conclusion> Posterior wall hypokinesis. The Ejection Fraction is 45% Mild mitral regurgitation. Trace tricuspid regurgitation. There is no evidence of significant pericardial effusion. Signed by : Hunter Tejada, Electronically Approved : 09/29/2021 09:06:27
--- NOTE | 2021-09-29 09:26 | PDOC ---
[employer] PROGRESS NOTE Date of Service DOS: DATE: 09/29/21 TIME: 08:57 Chief Complaint Chief Complaint Acute STEMI -status post RCA stenting. Hyperlipidemia - with hypertriglyceridemia. On high intensity atorvastatin Morbid obesity -counseled on weight loss lifestyle modification Hypertension -on lisinopril outpatient. FEN - Cardiac diet PPX - aggrastat FULL CODE Dispo - ICU for STEMI History of Present Illness History of Present Illness Mr Santa is a 36-year-old male who presented to the ER with 15 minutes of chest pain, rated at 10/10 on 09/26/2021. Had associated shortness of breath, diaphoresis, sore throat and a headache rated at 10/10. He had COVID-19 two weeks ago. He is vaccinated with Giovanny and Giovanny. He has a strong family history, father had MN at age 34. EKG in ED with changes consistent with ST elevated inferior acute myocardial infarction. 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 09/27: TSH 3.1, HDL 34 LDL 222, triglycerides 157. Having some right hip and lower back pain. Occasional back aching positional. Little bit of groin site pain. Still on Aggrastat currently plans for consideration for repeat intervention on 09/29/2021. No CP or SOB 09/28: No CP or SOB overnight. Right hip and back pain improved with Lidoderm patch and repositioning in the chair. Normal bowel movement today. Still on Aggrastat and aspirin with plans for repeat coronary angiography in the morning due to RCA heavy thrombus burden and distal occlusion. 09/29: No chest pain or shortness of breath. Continues on Aggrastat. Notes he had a little bit of a twinge in his right groin with some pain but other than that his hip pain is improved has been able to ambulate. N.p.o. for repeat cardiac angiography today. Plan on going home with aspirin statin and clopidogrel if no further interventions are required. Vitals/I&O Vitals/I&O: Vital Signs Date Time Temp Pulse Resp B/P (MAP) Pulse Ox O2 Delivery O2 Flow Rate FiO2 09/29/21 08:06 85 116/71 09/29/21 07:58 Room Air 09/29/21 06:00 15 96 09/29/21 04:00 99.0 99.0 I & O 09/28/21 09/28/21 09/29/21 15:00 23:00 07:00 Intake Total 600 ml 1364.18 ml 1204.8 ml Balance 600 ml 1364.18 ml 1204.8 ml Physical Exam General: Alert Heart: Regular rate Lungs: Clear Abdomen: Normal bowel sounds Assessment and Plan Assessmemt and Plan Problems Medical Problems: (1) STEMI (ST elevation myocardial infarction) Status: Acute Comment Review of Relevant I have reviewed the following items kiko (where applicable) has been applied. Medications: Current Medications Medications (Trade) Dose Ordered Sig/Terri Route PRN Reason Start Time Stop Time Status Last Admin Dose Admin Cetirizine HCl (ZyrTEC) 10 mg DAILY PO 09/28/21 12:00 09/28/21 12:17 Sodium Chloride 1,000 ml @ 60 mls/hr [id number] IV 09/29/21 08:00 09/29/21 08:00 Justifications for Admission Other Justification DANNI DEVI MD Sep 29, 2021 09:26
[2021-09-29] MEDS ORDERED: LIDOCAINE 1% PF 2 ML VIAL. ONE (12:55)
[2021-09-29] MEDS ORDERED: IODIXANOL 320 MG/ML 100 ML VIAL. ONE ×2 (12:56→14:04)
[2021-09-29] MEDS ORDERED: fentaNYL PF VIAL 100 MCG/2 ML VIAL ONE (12:57)
[2021-09-29] MEDS ORDERED: VERAPAMIL 5 MG/2 ML VIAL. ONE (12:58)
[2021-09-29] MEDS ORDERED: HEPARIN for IV BOLUS 10,000 UNIT/10 ML VIAL. ONE (12:58)
[2021-09-29] MEDS ORDERED: NITROGLYCERIN 200 MCG/2 ML SYRINGE FOR CATH/VASC LAB. ONE ×3 (12:58→14:11)
[2021-09-29] MEDS ORDERED: MIDAZOLAM HCL/PF 5 MG/5 ML VIAL. ONE (12:58)
[2021-09-29] MEDS ORDERED: fentaNYL PF VIAL 100 MCG/2 ML VIAL IV ONE (13:45)
[2021-09-29] MEDS ORDERED: VERAPAMIL 5 MG/2 ML VIAL. IART ONE (13:45)
[2021-09-29] MEDS ORDERED: LIDOCAINE 1% PF 2 ML VIAL. INJ ONE (13:45)
[2021-09-29] MEDS ORDERED: IODIXANOL 320 MG/ML 100 ML VIAL. IART ONE (13:45)
[2021-09-29] MEDS ORDERED: MIDAZOLAM HCL/PF 5 MG/5 ML VIAL. IV ONE (13:45)
[2021-09-29] MEDS ORDERED: NITROGLYCERIN 200 MCG/2 ML SYRINGE FOR CATH/VASC LAB. IART ONE (13:45)
[2021-09-29] MEDS ORDERED: HEPARIN for IV BOLUS 10,000 UNIT/10 ML VIAL. IART ONE (13:45)
[2021-09-29] MEDS ORDERED: HEPARIN for IV BOLUS 10,000 UNIT/10 ML VIAL. IV ONE (14:15)
[2021-09-29] MEDS ORDERED: NITROGLYCERIN 200 MCG/2 ML SYRINGE FOR CATH/VASC LAB. ICAR ONE (14:15)
[2021-09-29] MEDS ORDERED: CLOPIDOGREL BISULFATE 75 MG TABLET PO ONE (14:30)
--- NOTE | 2021-09-29 14:46 | NUR ---
SS following for discharge planning. SS reviewed pt chart and discussed with pt RN. Pt is from home and is currently requiring oxygen at two liters nasal canula PRN. COVID19 negative. Pt had heart cath with stent today. Cardiology following. SS will continue to follow for discharge planning.
--- NOTE | 2021-09-29 15:21 | NUR ---
Patient back in room from cathode builder at 1445. VSS, 0/10 pain.
--- NOTE | 2021-09-29 16:10 | CARD ---
MR#: [id number] Date of Study: 09/29/2021 Ordering Physician: JOJO MAXWELL, Referring Physician: JOJO MAXWELL, Tech: Denisse Doll APPROVED REPORT Technologist: Denisse Doll Nurse: Layla Silvestre RN Procedure(s) performed: fl time:9.6 min dose:152 gycm2 contrast: 125 ml moderate sedation: 71 MINS [facility], Coronary angiography, PCI of the RCA [facility] Clinical Frailty Scale [facility] Clinical Frailty Scale: Mildly Frail Heart Failure Heart Failure: No CASE TECHNIQUE IV conscious sedation was used throughout procedure with appropriate monitoring and was performed in the presence of a registered nurse who was an independent trained observer other than the physician p erforming the procedure. During this case, Fluoroscopy and low osmolar contrast were used for imaging . Specimen(s) Removed: N/A Estimated Blood loss: 15 cc's. PROCEDURE NARRATIVE Clinical information: 36-year-old male initially presented 48 hours ago in the setting of an inferior STEMI. He underwent PCI of the distal RCA and subsequent to this was started on anticoagulation due to heavy thrombotic b urden and a more mid to distal lesion was not stented out of concern for embolization of thrombus. T he patient returns to the Injection Operator for repeat evaluation. Procedure details: After appropriate informed consent the right wrist was prepped and draped in usual sterile fashion. A 6 Vincentian sheath was placed in the right radial artery. Diagnostic angiography was performed with a 6 Vincentian TIG catheter and a 6 Vincentian JL 3.5 catheter. Left ventricular end-diastolic pressure was o btained with a 6 Vincentian JR4 guide catheter and a pullback was performed. Findings: Aorta 110/80 LVEDP 7 mmHg No LV to aortic pullback gradient. Left main is a moderate to large caliber vessel with no angiographic appearance Left circumflex is a small caliber nondominant vessel with mild luminal irregularities LAD is a small caliber nondominant vessel with mild luminal irregularities RCA is a hyperdominant large caliber vessel with a mid 80% stenosis involving the bifurcation of a ea rly branching PDA. The previously placed stent in the distal RCA extending into the RPL is widely pa tent. There is resolution of the distal small vessel thrombotic disease. Interventional technique: The patient was previously on aspirin and Plavix. Heparin was given for anticoagulation. Through a 6 Vincentian JR4 guide catheter a Prowater wire was placed in the distal RPL and a second wire was placed in the distal RPDA. Balloon angioplasty was performed with a 3.5 x 20 mm balloon of the mid to dist al RCA lesion. The lesion was then stented with a 4.0 x 26 mm resolute drug-eluting stent in overlap ping fashion with the previously placed 3 mm stent. The stent was then postdilated with a 4 mm nonco mpliant balloon at 16 rand. No side branch occlusion was noted with JOE-3 flow in the PDA and RPL ve ssels. Final angiography demonstrated excellent stent expansion with no evidence of guide or wire re lated complications. The patient tolerated the procedure well. The right radial sheath was removed and hemostasis was achieved via Terumo radial band. The patient received 300 mg of Plavix at [facility]. No acute complications. JOE Flow JOE Flow (Pre-Intervention): JOE-3 JOE Flow (Post-Intervention): JOE-3 Conclusion 1. One-vessel coronary artery disease with severe mid to distal RCA stenosis prior to the recently p laced stent 2. Successful PCI with implantation of a 4.0 x 26 mm resolute drug-eluting stent post with a 4 mm no ncompliant balloon in the overlap segment. Recommendations Aspirin 81 mg daily Plavix 75 mg daily Cardiac rehabilitation High-dose statin therapy Okay to transfer to telemetry Signed by : Rafael Clifford, Electronically Approved : 09/29/2021 16:09:44
[2021-09-29] MEDS: ATORVASTATIN CALCIUM 40 MG TABLET. PO SCH (20:31)
[2021-09-29] MEDS: PATCH REMOVAL. MC SCH (20:32)
[2021-09-30] VITALS (11 sets, daily range): BP systolic 96–125; BP diastolic 61–88
[2021-09-30] MEDS ORDERED: CLOPIDOGREL BISULFATE 75 MG TABLET PO SCH (08:00)
[2021-09-30] MEDS: LIDOCAINE (700MG/PATCH) PATCH. TD SCH (09:00)
[2021-09-30] MEDS: LISINOPRIL 10 MG TABLET PO SCH (09:27)
[2021-09-30] MEDS: CETIRIZINE HCL 10 MG TABLET. PO SCH (09:27)
[2021-09-30] MEDS: ASPIRIN ENTERIC COATED 81 MG TABLET.DR. PO SCH (09:27)
[2021-09-30] MEDS ORDERED: ASPI-886 PO (10:26)
[2021-09-30] MEDS ORDERED: ATOR40TA59 PO (10:26)
[2021-09-30] MEDS ORDERED: CLOP75TA PO (10:26)
[2021-09-30] MEDS ORDERED: METO-239 PO (10:26)
[2021-09-30] MEDS ORDERED: NITR0.4T24 SL (10:26)
[2021-09-30] MEDS ORDERED: METOPROLOL SUCC 24HR ER 25 MG TAB.ER.24H. PO SCH (10:30)
--- NOTE | 2021-09-30 10:31 | PDOC ---
[employer] PROGRESS NOTE Date of Service DOS: DATE: 09/30/21 TIME: 10:28 Chief Complaint Chief Complaint Acute STEMI -status post RCA stenting. Hyperlipidemia - with hypertriglyceridemia. On high intensity atorvastatin Morbid obesity -counseled on weight loss lifestyle modification Hypertension -on lisinopril outpatient. FEN - Cardiac diet PPX - aggrastat FULL CODE Dispo - ICU for STEMI History of Present Illness History of Present Illness Mr Santa is a 36-year-old male who presented to the ER with 15 minutes of chest pain, rated at 10/10 on 09/26/2021. Had associated shortness of breath, diaphoresis, sore throat and a headache rated at 10/10. He had COVID-19 two weeks ago. He is vaccinated with Giovanny and Giovanny. He has a strong family history, father had [place] at age 34. EKG in ED with changes consistent with ST elevated inferior acute myocardial infarction. 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 Echo: Posterior wall hypokinesis. The Ejection Fraction is 45% Mild mitral regurgitation. Trace tricuspid regurgitation. There is no evidence of significant pericardial effusion. 09/27: TSH 3.1, HDL 34 LDL 222, triglycerides 157. Having some right hip and lower back pain. Occasional back aching positional. Little bit of groin site pain. Still on Aggrastat currently plans for consideration for repeat intervention on 09/29/2021. No CP or SOB 09/28: No CP or SOB overnight. Right hip and back pain improved with Lidoderm patch and repositioning in the chair. Normal bowel movement today. Still on Aggrastat and aspirin with plans for repeat coronary angiography in the morning due to RCA heavy thrombus burden and distal occlusion. 09/29: No chest pain or shortness of breath. Continues on Aggrastat. Notes he had a little bit of a twinge in his right groin with some pain but other than that his hip pain is improved has been able to ambulate. Repeat cardiac angiography Successful PCI with implantation of a 4.0 x 26 mm resolute drug- eluting stent post with a 4 mm noncompliant balloon in the overlap segment. Plan on going home with aspirin statin and clopidogrel 09/30: Tachycardic today still with some chest twinges. Some right wrist pain but no numbness or tingling or weakness. We will start low-dose Toprol-XL today hopefully be able to discharge within the next 24 hours on Plavix aspirin. A1c 5.5 Vitals/I&O Vitals/I&O: Vital Signs Date Time Temp Pulse Resp B/P (MAP) Pulse Ox O2 Delivery O2 Flow Rate FiO2 09/30/21 09:27 79 115/88 09/30/21 09:00 16 97 09/30/21 08:00 Room Air 09/30/21 08:00 98.9 98.9 09/29/21 14:34 2.0 I & O 09/29/21 09/29/21 09/30/21 15:00 23:00 07:00 Intake Total 2356.1 ml Balance 2356.1 ml Physical Exam General: Alert, Oriented X3, Cooperative Heart: Regular rate Lungs: Clear Abdomen: Normal bowel sounds Assessment and Plan Assessmemt and Plan Problems Medical Problems: (1) STEMI (ST elevation myocardial infarction) Status: Acute Comment Review of Relevant I have reviewed the following items kiko (where applicable) has been applied. Medications: Current Medications Medications (Trade) Dose Ordered Sig/Terri Route PRN Reason Start Time Stop Time Status Last Admin Dose Admin Clopidogrel Bisulfate (Plavix) 75 mg DAILYWBKFT PO 09/30/21 08:00 09/30/21 09:27 Nitroglycerin (Nitroglycerin) 200 mcg 1X ONCE IART 09/29/21 13:45 09/29/21 13:46 DC 09/29/21 14:31 Verapamil HCl (Verapamil) 2.5 mg 1X ONCE IART 09/29/21 13:45 09/29/21 13:46 DC 09/29/21 14:33 Heparin Sodium (Porcine) (Heparin Sodium) 2,500 unit 1X ONCE IART 09/29/21 13:45 09/29/21 13:46 DC 09/29/21 14:34 Heparin Sodium/ Sodium Chloride (HEPARIN for ARTERIAL LINE FLUSH) 1,000 unit 1X ONCE IART 09/29/21 13:45 09/29/21 13:46 DC 09/29/21 14:30 Heparin Sodium/ Sodium Chloride (HEPARIN for ARTERIAL LINE FLUSH) 1,000 unit 1X ONCE IART 09/29/21 13:45 09/29/21 13:46 DC 09/29/21 14:30 Midazolam HCl (Versed) 5 mg 1X ONCE IV 09/29/21 13:45 09/29/21 13:46 DC 09/29/21 14:34 Fentanyl Citrate (Fentanyl 2ml Vial) 100 mcg 1X ONCE IV 09/29/21 13:45 09/29/21 13:46 DC 09/29/21 14:34 Iodixanol (Visipaque 320) 100 ml 1X ONCE IART 09/29/21 13:45 09/29/21 13:46 DC 09/29/21 14:31 Lidocaine HCl (Xylocaine-Mpf 1% 2ml Vial) 2 ml 1X ONCE INJ 09/29/21 13:45 09/29/21 13:46 DC 09/29/21 14:33 Nitroglycerin (Nitroglycerin) 200 mcg 1X ONCE ICAR 09/29/21 14:15 09/29/21 14:16 DC 09/29/21 14:31 Heparin Sodium (Porcine) (Heparin Sodium) 4,000 unit 1X ONCE IV 09/29/21 14:15 09/29/21 14:16 DC 09/29/21 14:35 Clopidogrel Bisulfate (Plavix) 300 mg 1X ONCE PO 09/29/21 14:30 09/29/21 14:31 DC 09/29/21 14:32 Justifications for Admission Other Justification DANNI DEVI MD Sep 30, 2021 10:31
--- NOTE | 2021-09-30 12:52 | PDOC ---
CARDIO Progress Notes Date and Time Date of Service 09/30/2021 Time of Evaluation 1220 Subjective Subjective: No Chest Pain, No shortness of breath, No Palpitations Vitals Vitals Vital Signs Date Time Temp Pulse Resp B/P (MAP) Pulse Ox O2 Delivery O2 Flow Rate FiO2 09/30/21 11:38 96 118/72 09/30/21 09:00 16 97 09/30/21 08:00 Room Air 09/30/21 08:00 98.9 98.9 09/29/21 14:34 2.0 Weight Weight [ ] Input and Output Intake and Output Intake and Output 09/30/21 07:00 Intake Total 2356.1 ml Balance 2356.1 ml IV Total 2356.1 ml # Voids 3 # Bowel Movements 1 Physical Exam HEENT: Neck Supple W Full Motion Chest: Symmetric LUNGS: Clear to Auscultation Heart: S1S2, RRR (SR) Abdomen: Soft N/T Extremities: No Calf Tenderness Neurology: alert, oriented, follow commands Assessment Assessment 1. STEMI: S/P PCI/JORGE to RCA 2. ICM: EF at 45% 3. HTN: controlled 4. HLP 5. Metabolic syndrome Recommendations 1. ASA/ plavix, 2. Cardiac rehab 3. Secondary prevention measures, toprol, lisinopril, statin 4. Follow up in office. May DC today. Cardiac rehab referral Justicifation of Admission Dx: Justifications for Admission: Justification of Admission Dx: Yes ÁNGEL BRANCH APRN Sep 30, 2021 12:52
--- NOTE | 2021-09-30 13:17 | PDOC3 ---
Discharge Summary Visit Information Date of Admission: Sep 26, 2021 Date of Discharge: Sep 30, 2021 Admitting Diagnosis: STEMI Final Diagnosis Problems Medical Problems: (1) STEMI (ST elevation myocardial infarction) Status: Acute Brief Hospital Course Allergies Allergies Coded Allergies Type Severity Reaction Last Updated Verified Penicillins Allergy Intermediate 09/27/21 Yes Vital Signs Vital Signs Date Time Temp Pulse Resp B/P (MAP) Pulse Ox O2 Delivery O2 Flow Rate FiO2 09/30/21 11:38 96 118/72 09/30/21 09:00 16 97 09/30/21 08:00 Room Air 09/30/21 08:00 98.9 98.9 09/29/21 14:34 2.0 Brief Hospital Course Mr Santa is a 36-year-old male who presented to the ER with 15 minutes of chest pain, rated at 10/10 on 09/26/2021. Had associated shortness of breath, diaphoresis, sore throat and a headache rated at 10/10. He had COVID-19 two weeks ago. He is vaccinated with Giovanny and Giovanny. He has a strong family history, father had [place] at age 34. EKG in ED with changes consistent with ST elevated inferior acute myocardial infarction. 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 Echo: Posterior wall hypokinesis. The Ejection Fraction is 45% Mild mitral regurgitation. Trace tricuspid regurgitation. There is no evidence of significant pericardial effusion. 09/27: TSH 3.1, HDL 34 LDL 222, triglycerides 157. Having some right hip and lower back pain. Occasional back aching positional. Little bit of groin site pain. Still on Aggrastat currently plans for consideration for repeat intervention on 09/29/2021. No CP or SOB 09/28: No CP or SOB overnight. Right hip and back pain improved with Lidoderm patch and repositioning in the chair. Normal bowel movement today. Still on Aggrastat and aspirin with plans for repeat coronary angiography in the morning due to RCA heavy thrombus burden and distal occlusion. 09/29: No chest pain or shortness of breath. Continues on Aggrastat. Notes he had a little bit of a twinge in his right groin with some pain but other than that his hip pain is improved has been able to ambulate. Repeat cardiac angiography Successful PCI with implantation of a 4.0 x 26 mm resolute drug- eluting stent post with a 4 mm noncompliant balloon in the overlap segment. Plan on going home with aspirin statin and clopidogrel 09/30: Tachycardic today still with some chest twinges. Some right wrist pain but no numbness or tingling or weakness. We will start low-dose Toprol-XL today hopefully be able to discharge on Plavix aspirin. A1c 5.5 Consults: Cardiology Problem list: STEMI - S/P PCI/JORGE to RCA. dual antiplatelet 1 year Ischemic cardiomyopathy with EF at 45% HTN - bb, ALF-I Metabolic syndrome Hyperlipidemia - with hypertriglyceridemia. On high intensity atorvastatin Morbid obesity -counseled on weight loss lifestyle modification Greater than 30 minutes spent on d/c home with self care. Discharge Information Condition at Discharge: Improved Follow Up: Weeks (1) Disposition/Orders: D/C to Home Scheduled Aspirin (Aspirin Ec) 81 Mg Tablet.dr, 81 MG PO DAILYWBKFT for CAD for 30 Days, #30 Ref 11 Prescribed by: DANNI DEVI MD on 09/30/21 1026 Atorvastatin Calcium (Atorvastatin Calcium) 40 Mg Tablet, 40 MG PO QHS for HLD/CAD for 30 Days, #30 Ref 11 Prescribed by: DANNI DEVI MD on 09/30/21 1026 Clopidogrel Bisulfate (Clopidogrel) 75 Mg Tablet, 75 MG PO DAILYWBKFT for CAD for 30 Days, #30 Ref 11 Prescribed by: DANNI DEVI MD on 09/30/21 1026 Fexofenadine Hcl (Ariane Allergy) 180 Mg Tablet, 1 TAB PO DAILY for allergy symptoms for 30 Days, #30 Ref 0 (Reported) Entered as Reported by: DORIS BURNS RN on 09/28/21 1140 Last Action: Converted on 09/28/21 1143 by DORIS BURNS RN Lisinopril (Lisinopril) 10 Mg Tablet, 1 TAB PO DAILY for htn, #30 Ref 5 (Reported) Entered as Reported by: DORIS BURNS RN on 09/27/21 0853 Last Action: Continued on 09/27/21 0855 by DANNI DEVI MD Metoprolol Succinate (Metoprolol Succinate ( Xl )) 25 Mg Tab.er.24h, 0.5 TAB PO DAILY for CAD for 30 Days, #15 Ref 11 Prescribed by: DANNI DEVI MD on 09/30/21 1026 Scheduled PRN Nitroglycerin (Nitrostat) 0.4 Mg Tab.subl, 0.4 MG SL PRN Q5MIN PRN for CHEST PAIN for 30 Days, #9 Ref 11 Prescribed by: DANNI DEVI MD on 09/30/21 1026 Discontinued Medications Azithromycin (Azithromycin Tablet) 250 Mg Tablet, 1 PKG PO UD for 5 Days, #6 Ref 0 2 the first day followed by 1 for days 2-5 Prescribed by: GAVI SCHNEIDER APRN on 09/03/201811 Ibuprofen (Ibuprofen) 600 Mg Tablet, 600 MG PO PRN Q6HRS PRN for INFLAMMATION, #25 Prescribed by: GAVI SCHNEIDER APRN on 09/03/201811 Lisinopril (Lisinopril) 2.5 Mg Tablet, 1 TAB PO DAILY for HTN, #30 Ref 5 (Reported) Discontinued Reason: Prescription changed Entered as Reported by: TNAJA HUYNH on 09/27/21348 Last Taken: UNKNOWN on Unknown Date & Time Last Action: New Order on 09/27/21348 by TANJA HUYNH Methylprednisolone (Medrol) 4 Mg Tab.ds.pk, 1 PKG PO UD, #1 Prescribed by: GAVI SCHNEIDER APRN on 09/03/201811 Justicifation of Admission Dx: Justifications for Admission: Justification of Admission Dx: Yes DANNI DEVI MD Sep 30, 2021 13:17
--- NOTE | 2021-09-30 14:29 | NUR ---
Pt discharged home, post cardiac catheter teaching instructions, new medications/continued medications reviewed with patient. Pt alert and oriented x4, no pain, vital signs stable. Instructed pt to call cardiology (number given) to report a continued heart rate above 90. Discussed when to take blood pressure, sitting , relaxed. Cardiac diet teaching completed. Reviewed cardiac rehab referral. All teaching done with patient and brother at bedside.
== END 2021-09-30 14:35 | disposition home or self-care (01) | DRG 247 ==
LOC: ER 16:36 → 1 WEST ICU 17:00
PROVIDERS: ADMIT Internal Medicine; ATTEND Internal Medicine
PROC: B2111ZZ Fluoroscopy of Multiple Coronary Arteries using Low Osmolar Contrast (ICD-10-PCS; principal; 2021-09-26)
PROC: 027034Z Dilation of Coronary Artery, One Artery with Drug-eluting Intraluminal Device, Percutaneous Approach (ICD-10-PCS; 2021-09-26)
PROC: 027034Z Dilation of Coronary Artery, One Artery with Drug-eluting Intraluminal Device, Percutaneous Approach (ICD-10-PCS; 2021-09-29)
PROC: B2111ZZ Fluoroscopy of Multiple Coronary Arteries using Low Osmolar Contrast (ICD-10-PCS; 2021-09-29)
PROC: 4A023N7 Measurement of Cardiac Sampling and Pressure, Left Heart, Percutaneous Approach (ICD-10-PCS; 2021-09-29)
DX: I21.19 ST elevation (STEMI) myocardial infarction involving other coronary artery of inferior wall (principal); Z68.41 Body mass index [BMI] 40.0-44.9, adult; E66.01 Morbid (severe) obesity due to excess calories; E78.1 Pure hyperglyceridemia; E78.5 Hyperlipidemia, unspecified; E88.81 Metabolic syndrome and other insulin resistance; I10 Essential (primary) hypertension; I25.5 Ischemic cardiomyopathy; Z82.49 Family history of ischemic heart disease and other diseases of the circulatory system; Z98.61 Coronary angioplasty status; Z20.822 Contact with and (suspected) exposure to COVID-19; Z88.0 Allergy status to penicillin; I34.0 Nonrheumatic mitral (valve) insufficiency
CPT/HCPCS: 92928; 92941; 93454; 93458; 96361; 96374; 96375; 99291; G0269; 36415; 71045; 80048; 80053; 80061; 83036; 83690; 83735; 83880; 84443; 84484; 85025; 87426; 93005; 93306; 99152; 99153; C1725; C1874; C1894; J0583; J1644; J2250; J2270; J2405; J3010; J3490; J7030; Q9967; U0003; C8929; G0378; J3246